=== PATIENT | male | born 1955 | race Native Hawaiian/Other Pacific Islander ===

== ENCOUNTER 2019-05-15 01:10 | Inpatient (IN) | payer MEDICARE ==
[2019-05-15] MEDS ORDERED: SODIUM CHLORIDE 0.9% 500 ML 500 ML IV ONE (02:01)
[2019-05-15] MEDS ORDERED: HYDROmorphone 1 MG/ML 1 ML SYRINGE IVP STA (02:01)
[2019-05-15] MEDS ORDERED: ONDANSETRON 4 MG/2 ML VIAL IVP STA (02:01)
[2019-05-15 02:39] LABS: Basophils % (A) 0 %; Eosinophils # (A) 0.3 k/uL (0-0.7); Eosinophils % (A) 2 %; HCT 42.6 % (39.0-53.0); HGB 14.4 gm/dL (13.0-17.5); Lymphocytes % (A) 8 %; MCH 30.3 pg (25.0-35.0); MCHC 33.9 g/dL (31.0-37.0); MCV 89.6 fL (80.0-100.0); Mean Platelet Volume 6.9; Monocytes # (A) 0.7 k/uL (0-1.0); Monocytes % (A) 5 %; Neutrophils # (A) 10.6 k/uL (1.3-7.7); Neutrophils % (A) 84 %; Platelet Count 270 k/uL (150-450); RBC 4.76 m/uL (4.30-5.90); RDW 13.7 % (11.5-15.5); WBC 12.6 k/uL (3.8-10.6)
[2019-05-15 02:49] LABS: ALT 24 U/L (21-72); AST 21 U/L (17-59); African American GFR (CKD) >90 (>60 ml/min/1.73 sqM); Albumin 3.4 g/dL (3.5-5.0); Alkaline Phosphatase 126 U/L (38-126); Anion Gap 8 mmol/L; Blood Urea Nitrogen 5 mg/dL (9-20); Calcium 8.8 mg/dL (8.4-10.2); Carbon Dioxide 28 mmol/L (22-30); Chloride 101 mmol/L (98-107); Glucose 123 mg/dL (74-99); Potassium 3.2 mmol/L (3.5-5.1); Sodium 137 mmol/L (137-145); Total Protein 6.1 g/dL (6.3-8.2)
[2019-05-15] MEDS ORDERED: POTASSIUM CHLORIDE ER 20 MEQ TAB.ER PO STA ×2 (02:50→11:22)
[2019-05-15] MEDS ORDERED: SULFAMETH-TMP DS STARTER PACK 2 TAB BTL PO STA (03:07)
[2019-05-15] MEDS ORDERED: PIPERACILLIN-TAZOBACTAM 3.375 GM in SODIUM CHLORIDE 0.9% 100 ML IVPB STA (04:00)
[2019-05-15] MEDS ORDERED: VANCOMYCIN IV PER PHARMACY 1 EACH MISC MISCELLANE PRN (04:00)
[2019-05-15] MEDS ORDERED: ONDANSETRON 4 MG/2 ML VIAL IVP PRN (04:05)
[2019-05-15] MEDS ORDERED: NALOXONE 0.4 MG/ML 1 ML VIAL IV PRN (04:05)
--- NOTE | 2019-05-15 04:09 | ED ---
General Adult HPI - General Source: patient Mode of arrival: ambulatory Limitations: no limitations <Love Nelson - Last Filed: 05/15/19 04:11> <Blaire Macedo - Last Filed: 05/29/19 14:52> - General Chief complaint: Extremity Injury, Lower Stated complaint: Foot Pain Time Seen by Provider: 05/15/19 01:25 - History of Present Illness Initial comments: 63-year-old male patient with past medical history significant for hypertension, alcohol abuse, recently diagnosed with type 2 diabetes, presents to the emergency department today for evaluation of infection to the left foot. Patient was recently seen and treated at the [facility] for wet gangrene of the left second toe with cellulitis to the foot. Patient underwent amputation of the left second toe on 05/13/2019. Patient states that today they were discussing amputation of the remainder of the toes on the left foot, states that he did not feel this was necessary so he left AGAINST MEDICAL ADVICE on 05/14/20 at 2030. Patient initially stubbed his toe on a chair approximately 3 weeks ago. States he developed an infection to the wound on the toe. He was seen at "[facility]" where they recommended amputation of the toe. He left that facility to seek treatment at the [facility], left AMA, which brings us to his visit here hetal. Patient is reporting significant pain to the left foot. States he was receiving IV antibiotics and IV fluids. States that he has a "blockage" in his leg causing the wounds. Patient denies any fever or chills. Denies any nausea or vomiting. Patient denies any recent rash, shortness breath, chest pain, abdominal pain, diarrhea, constipation, back pain, numbness, tingling, dizziness, weakness, hematuria, dysuria, urinary urgency, urinary frequency, headache, visual changes, or any other complaints. (Love Nelson) - Related Data Home Medications Medication Instructions Recorded Confirmed Lisinopril 20 mg PO PC-LUNCH 05/15/19 05/22/19 Previous Rx's Medication Instructions Recorded cefTRIAXone [Rocephin] 2,000 mg IVPB Q24HR #14 vial 05/25/19 Apixaban [Eliquis] 5 mg PO BID #60 tab 05/26/19 traMADol HCl [Ultram] 50 mg PO TID PRN #12 tab 05/28/19 Allergies Allergy/AdvReac Type Severity Reaction Status Date / Time codeine AdvReac Hallucinati Verified 05/22/19 11:11 ons Review of Systems ROS Other: All systems not noted in ROS Statement are negative. <Love Nelson M - Last Filed: 05/15/19 04:11> ROS Other: All systems not noted in ROS Statement are negative. <Blaire Macedo P - Last Filed: 05/29/19 14:52> ROS Statement: Those systems with pertinent positive or pertinent negative responses have been documented in the HPI. Past Medical History Past Medical History: Hypertension History of Any Multi-Drug Resistant Organisms: None Reported Past Surgical History: Orthopedic Surgery Additional Past Surgical History / Comment(s): second toe on left foot amputated 05/13/2019 Past Psychological History: No Psychological Hx Reported Smoking Status: Former smoker Past Alcohol Use History: Occasional Past Drug Use History: Marijuana <Love Nelson - Last Filed: 05/15/19 04:11> General Exam Limitations: no limitations General appearance: alert, in no apparent distress, other (Physical well- developed, well-nourished adult male patient in no acute distress. Vital signs upon presentation are temperature 98.5F, pulse 92, respirations 18, blood pressure 160/78, pulse ox 97% on room air.) Eye exam: Present: normal appearance, PERRL, EOMI. Absent: scleral icterus, conjunctival injection, periorbital swelling ENT exam: Present: normal exam, normal oropharynx, mucous membranes moist Cardiovascular Exam: Present: regular rate, normal rhythm, normal heart sounds. Absent: systolic murmur, diastolic murmur, rubs, gallop, clicks GI/Abdominal exam: Present: soft, normal bowel sounds. Absent: distended, tenderness, guarding, rebound, rigid Extremities exam: Present: full ROM, tenderness (Left dorsal foot tenderness), normal capillary refill, other (Patient has amputation of the left second toe. There is necrotic wound to the lateral aspect of the left great toe. There is wound between the left fourth and fifth toe with purulent drainage. There is erythema and swelling noted over the dorsal aspect of the left foot. Tenderness over the dorsal aspect of the left foot. Skin is warm and dry. Pulses to the left foot are absent.). Absent: normal inspection, pedal edema, joint swelling, calf tenderness Neurological exam: Present: alert, oriented X3, CN II-XII intact Psychiatric exam: Present: normal affect, normal mood Skin exam: Present: warm, dry, intact, normal color. Absent: rash <Love Nelson - Last Filed: 05/15/19 04:11> Course Vital Signs 05/15/19 05/15/19 05/15/19 01:14 04:25 06:37 Temperature 98.5 F 98.7 F Pulse Rate 92 73 78 Respiratory 18 18 18 Rate Blood Pressure 160/78 154/84 167/89 O2 Sat by Pulse 97 97 98 Oximetry Medical Decision Making - Lab Data Result diagrams: 05/15/19 02:22 05/15/19 02:22 <Love Nelson - Last Filed: 05/15/19 04:11> - Lab Data Result diagrams: 05/25/19 06:44 05/24/19 05:50 <Blaire Macedo - Last Filed: 05/29/19 14:52> - Medical Decision Making 63-year-old male patient with history significant for hypertension, alcohol abuse, approximately one fifth per week, recently diagnosed with type 2 diabetes, presents to the emergency department today for evaluation of infection and wounds to the left foot. Patient was being treated at the [facility] for gangrene of the left second toe and is status post left second toe amputation on 05/13/2019. Patient left their facility AGAINST MEDICAL ADVICE 05/14/2019 at 2030 due to discussion regarding amputation of the remainder of the toes on the left foot. Patient presented here for further evaluation and treatment at a facility closer to his home. Review of records from the [facility] indicates that patient was receiving Zosyn and vancomycin IV for diagnosis of wet gangrene and cellulitis to the left foot. Patient was being seen by the vascular team there who were planning fem- pop bypass. Xray of the left foot showed prominent soft tissue swelling of the dorsal forefoot. No evidence of underlying acute osseous abnormality. Preliminary wound culture did show rare gram positive cocci. Physical examination here in the emergency department did reveal evidence for erythema and swelling to the left dorsal foot, left second toe amputation, wounds to the left great toe and between the fourth and fifth toe on the left foot. Patient is afebrile with stable vital signs. Labs reviewed and did reveal white blood cell count of 12.6. Potassium 3.2, this was replaced. Mildly elevated blood sugar 123. Patient's pain was managed. I did discuss the case with the on-call vascular surgeon Dr. Tapia who is willing to see and manage patient at this facility. Patient will be admitted to Dr. De La Rosa who covers for the [facility]. I have placed a consult for infectious disease. His vanco and zosyn has been continued. I did culture the wound to the left foot. Pain management will be provided. Patient and family are agreeable with this plan. (Love Nelson) I personally saw and evaluated the patient and agree with plan for admission and vascular surgery consultation. (Blaire Macedo) - Lab Data Lab Results 05/15/19 05/15/19 05/15/19 Range/Units 02:22 02:22 02:22 WBC 12.6 H (3.8-10.6) k/uL RBC 4.76 (4.30-5.90) m/uL Hgb 14.4 (13.0-17.5) gm/dL Hct 42.6 (39.0-53.0) % MCV 89.6 (80.0-100.0) fL MCH 30.3 (25.0-35.0) pg MCHC 33.9 (31.0-37.0) g/dL RDW 13.7 (11.5-15.5) % Plt Count 270 (150-450) k/uL Neutrophils % 84 % Lymphocytes % 8 % Monocytes % 5 % Eosinophils % 2 % Basophils % 0 % Neutrophils # 10.6 H (1.3-7.7) k/uL Lymphocytes # 1.0 (1.0-4.8) k/uL Monocytes # 0.7 (0-1.0) k/uL Eosinophils # 0.3 (0-0.7) k/uL Basophils # 0.0 (0-0.2) k/uL Sodium 137 (137-145) mmol/L Potassium 3.2 L (3.5-5.1) mmol/L Chloride 101 (98-107) mmol/L Carbon Dioxide 28 (22-30) mmol/L Anion Gap 8 mmol/L BUN 5 L (9-20) mg/dL Creatinine 0.53 L (0.66-1.25) mg/dL Est GFR (CKD-EPI)AfAm >90 (>60 ml/min/1.73 sqM) Est GFR (CKD-EPI)NonAf >90 (>60 ml/min/1.73 sqM) Glucose 123 H (74-99) mg/dL Estimated Ave Glu mg/dL Hemoglobin A1c (4.0-6.0) % Plasma Lactic Acid Duane 1.2 (0.7-2.0) mmol/L Calcium 8.8 (8.4-10.2) mg/dL Total Bilirubin 1.0 (0.2-1.3) mg/dL AST 21 (17-59) U/L ALT 24 (21-72) U/L Alkaline Phosphatase 126 (38-126) U/L Total Protein 6.1 L (6.3-8.2) g/dL Albumin 3.4 L (3.5-5.0) g/dL 05/15/19 Range/Units 02:22 WBC (3.8-10.6) k/uL RBC (4.30-5.90) m/uL Hgb (13.0-17.5) gm/dL Hct (39.0-53.0) % MCV (80.0-100.0) fL MCH (25.0-35.0) pg MCHC (31.0-37.0) g/dL RDW (11.5-15.5) % Plt Count (150-450) k/uL Neutrophils % % Lymphocytes % % Monocytes % % Eosinophils % % Basophils % % Neutrophils # (1.3-7.7) k/uL Lymphocytes # (1.0-4.8) k/uL Monocytes # (0-1.0) k/uL Eosinophils # (0-0.7) k/uL Basophils # (0-0.2) k/uL Sodium (137-145) mmol/L Potassium (3.5-5.1) mmol/L Chloride (98-107) mmol/L Carbon Dioxide (22-30) mmol/L Anion Gap mmol/L BUN (9-20) mg/dL Creatinine (0.66-1.25) mg/dL Est GFR (CKD-EPI)AfAm (>60 ml/min/1.73 sqM) Est GFR (CKD-EPI)NonAf (>60 ml/min/1.73 sqM) Glucose (74-99) mg/dL Estimated Ave Glu mg/dL 131 Hemoglobin A1c 6.2 H (4.0-6.0) % Plasma Lactic Acid Duane (0.7-2.0) mmol/L Calcium (8.4-10.2) mg/dL Total Bilirubin (0.2-1.3) mg/dL AST (17-59) U/L ALT (21-72) U/L Alkaline Phosphatase (38-126) U/L Total Protein (6.3-8.2) g/dL Albumin (3.5-5.0) g/dL Disposition Decision to Admit Reason: Admit from EC Decision Date: 05/15/19 Decision Time: 04:09 <Love Nelson - Last Filed: 05/15/19 04:11> <Blaire Macedo - Last Filed: 05/29/19 14:52> Clinical Impression: Gangrene of left foot, Cellulitis of left foot, Arterial occlusion Disposition: ADMITTED IP TO THIS [facility] Condition: Serious
[2019-05-15] MEDS ORDERED: VANCOMYCIN 1,250 MG in SODIUM CHLORIDE 0.9% 250 ML IVPB ONE (05:00)
[2019-05-15] MEDS: HYDROmorphone 1 MG/ML 1 ML SYRINGE IVP PRN ×5 (06:33→22:23)
[2019-05-15] MEDS: LISINOPRIL 20 MG TAB PO SCH (08:35)
[2019-05-15] MEDS: PIPERACILLIN-TAZOBACTAM 3.375 GM in SODIUM CHLORIDE 0.9% 100 ML IVPB SCH ×2 (10:54→20:59)
[2019-05-15 12:36] LABS: Glucose,Whole Blood 104 mg/dL (75-99)
--- NOTE | 2019-05-15 12:58 | P.CONS ---
History of Present Illness - Reason for Consult Consult date: 05/15/19 Gangrene left foot cellulitis - History of Present Illness This is a 63-year-old male gives history that he had an injury to his left foot about a month ago when he tripped in his living room and injured his left foot. Patient states that he developed swelling continued to worsen and he was unable to fit issue on his foot. He ended up at [facility] but was unhappy with care and then went to [facility] in [place]. He had amputation of the second toe done on May 13 and he states vascular surgeon wasn't planning to do bypass surgery and possible transmetatarsal amputation but he did not want to undergo this. He had a second opinion with a retention specialist and it was determined that he would not have the amputation. He states he was concerned about his care there and left last evening, possibly AGAINST MEDICAL ADVICE and came to [facility] emergency center for evaluation. He was found to be febrile, WBC 12.6, creatinine 0.53, blood sugar 123, albumin 3.4. Patient was started on Zosyn and vancomycin and admitted to the [facility] floor. There is also consult in place for Dr. Martinez. The patient denies any history of diabetes although it is documented in his chart. He is currently an active smoker at 5-6 cigarettes per day and also active marijuana use. He denies alcohol abuse. Review of Systems Constitutional: Denies chills, Denies fatigue, Denies fever, Denies lethargy, Denies malaise, Denies weight loss Ears, nose, mouth and throat: Denies dysphagia, Denies nasal congestion, Denies nasal discharge, Denies vertigo Cardiovascular: Denies decreased exercise tolerance, Denies dyspnea on exertion, Denies edema, Denies leg edema, Denies lightheadedness, Denies syncope Respiratory: Denies cough, Denies cough with sputum, Denies dyspnea, Denies excessive sputum, Denies hemoptysis, Denies home oxygen, Denies wheezing Gastrointestinal: Denies constipation, Denies diarrhea, Denies loss of appetite, Denies nausea, Denies vomiting Genitourinary: Denies dysuria, Denies urinary frequency, Denies urinary retentio n Musculoskeletal: Denies frequent falls, Denies gait dysfunction, Denies muscle weakness, Denies myalgias Integumentary: Reports color changes, Reports darkening of skin, Reports wounds, Denies pruritus, Denies rash Neurological: Denies aphasia, Denies change in mentation, Denies change in speech, Denies confusion, Denies gait dysfunction, Denies syncope, Denies vertigo Psychiatric: Denies anxiety, Denies depression Past Medical History Past Medical History: Diabetes Mellitus, Hypertension Additional Past Medical History / Comment(s): recently diagnosed with type 2 diabetes last month. Nerve damage from left rotater cuff. Mumps/measles at a child. Psoriasis. History of Any Multi-Drug Resistant Organisms: None Reported Past Surgical History: Orthopedic Surgery Additional Past Surgical History / Comment(s): second toe on left foot amputated 05/13/2019 Past Psychological History: No Psychological Hx Reported Smoking Status: Former smoker Past Alcohol Use History: Occasional Additional Past Alcohol Use History / Comment(s): The patient is a smoker 5-6 cigarettes per day for 40 years. He states he smokes marijuana daily. He states he drinks very little alcohol and denies alcohol abuse. Patient lives at home with his significant other. There is a dog in the home. He is on disability due to a rotator cuff problem. 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 Past Drug Use History: Marijuana Medications and Allergies Home Medications Medication Instructions Recorded Confirmed Type Lisinopril 20 mg PO PC-LUNCH 05/15/19 05/15/19 History Allergies Allergy/AdvReac Type Severity Reaction Status Date / Time codeine AdvReac Hallucinati Verified 05/15/19 06:31 ons Physical Exam Vitals: Vital Signs Temp Pulse Pulse Resp BP BP Pulse Ox 05/15/19 07:25 98.1 F 65 16 154/86 97 05/15/19 06:37 98.7 F 78 18 167/89 98 05/15/19 04:25 73 18 154/84 97 05/15/19 01:14 98.5 F 92 18 160/78 97 Intake and Output 05/14/19 05/15/19 05/15/19 22:59 06:59 14:59 Intake Total 400 Output Total 400 Balance 0 Intake: Intake, IV Titration 100 Amount Piperacillin-Tazobactam 3 100 .375 gm In Sodium Chloride 0.9% 100 ml @ 25 mls/hr IVPB Q8H [facility] Rx#: [id number] Oral 300 Output: Urine 400 Other: Voiding Method Urinal Weight 72.121 kg Gen: This is a 63-year-old male. He is resting in bed appears to be comfortable and in no acute distress. HEENT: Head is atraumatic, normocephalic. Pupils equal, round. Sclerae is anicteric. Oral mucous membranes are moist. NECK: Supple. No JVD. No lymphadenopathy. No thyromegaly. LUNGS: Clear to auscultation. No wheezes or rhonchi. No intercostal retractions. HEART: Regular rate and rhythm. No murmur. ABDOMEN: Soft. Bowel sounds are present. No masses. No tenderness. EXTREMITIES: No pedal edema. No calf tenderness. Noted amputation to the second toe on the left foot, trace edema, mild erythema to the distal metatarsals. Dorsalis pedis is +1 bilaterally. NEUROLOGICAL: Patient is awake, alert and oriented x3. Cranial nerves 2 through 12 are grossly intact. Results Results: Laboratory Results WBC 12.6 k/uL (3.8-10.6) H 05/15/19 02:22 RBC 4.76 m/uL (4.30-5.90) 05/15/19 02:22 Hgb 14.4 gm/dL (13.0-17.5) 05/15/19 02:22 Hct 42.6 % (39.0-53.0) 05/15/19 02:22 MCV 89.6 fL (80.0-100.0) 05/15/19 02:22 MCH 30.3 pg (25.0-35.0) 05/15/19 02:22 MCHC 33.9 g/dL (31.0-37.0) 05/15/19 02:22 RDW 13.7 % (11.5-15.5) 05/15/19 02:22 Plt Count 270 k/uL (150-450) 05/15/19 02:22 Neutrophils % 84 % 05/15/19 02:22 Lymphocytes % 8 % 05/15/19 02:22 Monocytes % 5 % 05/15/19 02:22 Eosinophils % 2 % 05/15/19 02:22 Basophils % 0 % 05/15/19 02:22 Neutrophils # 10.6 k/uL (1.3-7.7) H 05/15/19 02:22 Lymphocytes # 1.0 k/uL (1.0-4.8) 05/15/19 02:22 Monocytes # 0.7 k/uL (0-1.0) 05/15/19 02:22 Eosinophils # 0.3 k/uL (0-0.7) 05/15/19 02:22 Basophils # 0.0 k/uL (0-0.2) 05/15/19 02:22 Sodium 137 mmol/L (137-145) 05/15/19 02:22 Potassium 3.2 mmol/L (3.5-5.1) L 05/15/19 02:22 Chloride 101 mmol/L (98-107) 05/15/19 02:22 Carbon Dioxide 28 mmol/L (22-30) 05/15/19 02:22 Anion Gap 8 mmol/L 05/15/19 02:22 BUN 5 mg/dL (9-20) L 05/15/19 02:22 Creatinine 0.53 mg/dL (0.66-1.25) L 05/15/19 02:22 Est GFR (CKD-EPI)AfAm >90 (>60 ml/min/1.73 sqM) 05/15/19 02:22 Est GFR (CKD-EPI)NonAf >90 (>60 ml/min/1.73 sqM) 05/15/19 02:22 Glucose 123 mg/dL (74-99) H 05/15/19 02:22 POC Glucose (mg/dL) 104 mg/dL (75-99) H 05/15/19 12:20 POC Glu [place] Worker Cari Rollins 05/15/19 12:20 Plasma Lactic Acid Duane 1.2 mmol/L (0.7-2.0) 05/15/19 02:22 Calcium 8.8 mg/dL (8.4-10.2) 05/15/19 02:22 Total Bilirubin 1.0 mg/dL (0.2-1.3) 05/15/19 02:22 AST 21 U/L (17-59) 05/15/19 02:22 ALT 24 U/L (21-72) 05/15/19 02:22 Alkaline Phosphatase 126 U/L (38-126) 05/15/19 02:22 Total Protein 6.1 g/dL (6.3-8.2) L 05/15/19 02:22 Albumin 3.4 g/dL (3.5-5.0) L 05/15/19 02:22 CBC & Chem 7: 05/15/19 02:22 05/15/19 02:22 Labs: Abnormal Lab Results - Last 24 Hours (Table) 05/15/19 05/15/19 05/15/19 Range/Units 02:22 02:22 12:20 WBC 12.6 H (3.8-10.6) k/uL Neutrophils # 10.6 H (1.3-7.7) k/uL Potassium 3.2 L (3.5-5.1) mmol/L BUN 5 L (9-20) mg/dL Creatinine 0.53 L (0.66-1.25) mg/dL Glucose 123 H (74-99) mg/dL POC Glucose (mg/dL) 104 H (75-99) mg/dL Total Protein 6.1 L (6.3-8.2) g/dL Albumin 3.4 L (3.5-5.0) g/dL Microbiology - Last 24 Hours (Table) 05/15/19 04:31 Wound Culture - Preliminary Toe - Left Second Assessment and Plan Plan: This is a 63-year-old man who recently underwent amputation of the left second toe for gangrene. He is currently on Zosyn and vancomycin which will be continued for now. [facility] from [facility] will be obtained. Dr. Martinez is also on consult. Hemoglobin A1c will be ordered. Continue supportive care. Further recommendations as patient progresses. The above dictated assessment and findings were discussed with Dr. Matos. The impression and plan of care have been directed as dictated. Yumiko Maynard nurse practitioner acting as scribe for Dr. Matos.
[2019-05-15] MEDS: VANCOMYCIN 1,250 MG in SODIUM CHLORIDE 0.9% 250 ML IVPB SCH ×2 (13:10→22:25)
--- NOTE | 2019-05-15 13:42 | P.HPIM ---
History of Present Illness 63-year-old male with history of breast disease hypertension was smoking until 2 weeks ago had a recent amputation of the left second toe on the May at [facility] in [place] left AMA from the hospital as he was getting confusing information from all the doctors that. Patient comes in here with pain in the right leg found to have cellulitis infection. Patient is on Zosyn and vancomycin infectious disease was consulted. Patient was diagnosed with the diabetes with hemoglobin A1c of 6.1 at [facility] without need a hemoglobin A1c here that which will be deciding her patient denied any fever chills nausea vomiting. Patient and dysuria Review of Systems REVIEW OF SYSTEMS: CONSTITUTIONAL: No fever, no malaise, no fatigue. HEENT: No recent visual problems or hearing problems. Denied any sore throat. CARDIOVASCULAR: No chest pain, orthopnea, PND, no palpitations, no syncope. PULMONARY: No shortness of breath, no cough, no hemoptysis. GASTROINTESTINAL: No diarrhea, no nausea, no vomiting, no abdominal pain. NEUROLOGICAL: No headaches, no weakness, no numbness. HEMATOLOGICAL: Denies any bleeding or petechiae. GENITOURINARY: Denies any burning micturition, frequency, or urgency. MUSCULOSKELETAL/RHEUMATOLOGICAL: As mentioned in HPI ENDOCRINE: Denies any polyuria or polydipsia. The rest of the 14-point review of systems is negative. Past Medical History Past Medical History: Diabetes Mellitus, Hypertension Additional Past Medical History / Comment(s): recently diagnosed with type 2 diabetes last month. Nerve damage from left rotater cuff. Mumps/measles at a child. Psoriasis. History of Any Multi-Drug Resistant Organisms: None Reported Past Surgical History: Orthopedic Surgery Additional Past Surgical History / Comment(s): second toe on left foot amputated 05/13/2019 Past Psychological History: No Psychological Hx Reported Smoking Status: Former smoker Past Alcohol Use History: Occasional Additional Past Alcohol Use History / Comment(s): The patient is a smoker 5-6 cigarettes per day for 40 years. He states he smokes marijuana daily. He states he drinks very little alcohol and denies alcohol abuse. Patient lives at home with his significant other. There is a dog in the home. He is on disability due to a rotator cuff problem. 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 Past Drug Use History: Marijuana Medications and Allergies Home Medications Medication Instructions Recorded Confirmed Type Lisinopril 20 mg PO PC-LUNCH 05/15/19 05/15/19 History Allergies Allergy/AdvReac Type Severity Reaction Status Date / Time codeine AdvReac Hallucinati Verified 05/15/19 06:31 ons Physical Exam Vitals: Vital Signs Temp Pulse Pulse Resp BP BP Pulse Ox 05/15/19 07:25 98.1 F 65 16 154/86 97 05/15/19 06:37 98.7 F 78 18 167/89 98 05/15/19 04:25 73 18 154/84 97 05/15/19 01:14 98.5 F 92 18 160/78 97 Intake and Output 05/14/19 05/15/19 05/15/19 22:59 06:59 14:59 Intake Total 700 Output Total 700 Balance 0 Intake: Intake, IV Titration 100 Amount Piperacillin-Tazobactam 3 100 .375 gm In Sodium Chloride 0.9% 100 ml @ 25 mls/hr IVPB Q8H [facility] Rx#: [id number] Oral 600 Output: Urine 700 Other: Voiding Method Urinal Weight 72.121 kg PHYSICAL EXAMINATION: GENERAL: The patient is alert and oriented x3, not in any acute distress. Well developed, well nourished. HEENT: Pupils are round and equally reacting to light. EOMI. No scleral icterus. No conjunctival pallor. Normocephalic, atraumatic. No pharyngeal erythema. No th yromegaly. CARDIOVASCULAR: S1 and S2 present. No murmurs, rubs, or gallops. PULMONARY: Chest is clear to auscultation, no wheezing or crackles. ABDOMEN: Soft, nontender, nondistended, normoactive bowel sounds. No palpable organomegaly. MUSCULOSKELETAL: No joint swelling or deformity. EXTREMITIES: No cyanosis, clubbing, or pedal edema. NEUROLOGICAL: Gross neurological examination did not reveal any focal deficits. SKIN: Patient had amputated second right toe, surgical site area appears to be red erythematous tender to touch with the purulent drainage yesterday presently not having any drainage. Decreased pulses in the same extremity pulses in the legs. Okay Results CBC & Chem 7: 05/15/19 02:22 05/15/19 02:22 Labs: Abnormal Lab Results - Last 24 Hours (Table) 05/15/19 05/15/19 05/15/19 Range/Units 02:22 02:22 12:20 WBC 12.6 H (3.8-10.6) k/uL Neutrophils # 10.6 H (1.3-7.7) k/uL Potassium 3.2 L (3.5-5.1) mmol/L BUN 5 L (9-20) mg/dL Creatinine 0.53 L (0.66-1.25) mg/dL Glucose 123 H (74-99) mg/dL POC Glucose (mg/dL) 104 H (75-99) mg/dL Total Protein 6.1 L (6.3-8.2) g/dL Albumin 3.4 L (3.5-5.0) g/dL Microbiology - Last 24 Hours (Table) 05/15/19 04:31 Wound Culture - Preliminary Toe - Left Second Thrombosis Risk Factor Assmnt - Choose All That Apply Any of the Below Risk Factors Present?: No Each Risk Factor Represents 2 Points: Age 61-74 years Thrombosis Risk Factor Assessment Total Risk Factor Score: 2 Thrombosis Risk Factor Assessment Level: Low Risk Assessment and Plan Plan: -Cellulitis and infection of the left foot status post amputation of the left second toe. Awaiting wound cultures and blood cultures. -Peripheral vascular disease --3 diabetes mellitus with hemoglobin A1c 6.1 -Hypertension: Resume on lisinopril -Nicotine abuse, quit smoking 2 weeks ago DVT prophylaxis with heparin subcutaneous and GI prophylaxis with Pepcid
[2019-05-15] MEDS: HEPARIN SODIUM,PORCINE 5,000 UNIT/ML 1 ML VIAL SQ SCH (15:36)
[2019-05-15] MEDS ORDERED: VANCOMYCIN 1,250 MG in SODIUM CHLORIDE 0.9% 250 ML IVPB SCH (17:00)
--- NOTE | 2019-05-15 18:07 | P.GSCN ---
History of Present Illness Consult date: 05/15/19 History of present illness: The patient is a 63-year-old male with a history of hypertension, newly diagnosed diabetes, tobacco abuse and left lower extremity gangrene. A few weeks back he injured his toe by hitting it on something. He notices her to change colors. He initially went to an outside hospital and was told he would need a partial amputation of his toe. At that point he left AMA from that hospital. [facility] [place] and told him he would need further intervention. He was confused between the doctor's and did not feel as though he wanted to stay therefore he left AMA from that location and presented to this hospital. He denies any fevers, chills, nausea, vomiting or chest pains. Past Medical History Past Medical History: Diabetes Mellitus, Hypertension Additional Past Medical History / Comment(s): recently diagnosed with type 2 diabetes last month. Nerve damage from left rotater cuff. Mumps/measles at a [facility] ld. Psoriasis. History of Any Multi-Drug Resistant Organisms: None Reported Past Surgical History: Orthopedic Surgery Additional Past Surgical History / Comment(s): second toe on left foot amputated 05/13/2019 Past Psychological History: No Psychological Hx Reported Smoking Status: Former smoker Past Alcohol Use History: Occasional Additional Past Alcohol Use History / Comment(s): The patient is a smoker 5-6 cigarettes per day for 40 years. He states he smokes marijuana daily. He states he drinks very little alcohol and denies alcohol abuse. Patient lives at home with his significant other. There is a dog in the home. He is on disability due to a rotator cuff problem. 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 Past Drug Use History: Marijuana Medications and Allergies Home Medications Medication Instructions Recorded Confirmed Type Lisinopril 20 mg PO PC-LUNCH 05/15/19 05/15/19 History Allergies Allergy/AdvReac Type Severity Reaction Status Date / Time codeine AdvReac Hallucinati Verified 05/15/19 06:31 ons Surgical - Exam Vital Signs Temp Pulse Resp BP Pulse Ox 98.5 F 92 18 160/78 97 05/15/19 01:14 05/15/19 01:14 05/15/19 01:14 05/15/19 01:14 05/15/19 01:14 Gen. is a pleasant cooperative male in no acute distress HEENT is normocephalic and atraumatic Heart is regular in rate and rhythm Lungs are clear consultation bilaterally, no respiratory distress Abdomen is soft, rotund, nontender to palpation In the right groin there is an old access site with mild ecchymosis surrounding, left groin is clean, dry Extremities show normal motion, no clubbing. On the left lower extremity the second toe is surgically absent. There is some subcutaneous edema and the dorsal portion of the left foot. There is some area of necrotic tissue at the edges of the wound bed. The tissues between the fourth and fifth toe are macerated Vascular exam reveals palpable radial pulses bilaterally. Weakly palpable right femoral pulse, strong left femoral pulse. Nonpalpable DP/PT. Results - Labs 05/15/19 02:22 05/15/19 02:22 Abnormal Lab Results - Last 24 Hours (Table) 05/15/19 05/15/19 05/15/19 Range/Units 02:22 02:22 12:20 WBC 12.6 H (3.8-10.6) k/uL Neutrophils # 10.6 H (1.3-7.7) k/uL Potassium 3.2 L (3.5-5.1) mmol/L BUN 5 L (9-20) mg/dL Creatinine 0.53 L (0.66-1.25) mg/dL Glucose 123 H (74-99) mg/dL POC Glucose (mg/dL) 104 H (75-99) mg/dL Total Protein 6.1 L (6.3-8.2) g/dL Albumin 3.4 L (3.5-5.0) g/dL Microbiology - Last 24 Hours (Table) 05/15/19 04:31 Wound Culture - Preliminary Toe - Left Second Diabetes panel 05/15/19 Range/Units 02:22 Sodium 137 (137-145) mmol/L Potassium 3.2 L (3.5-5.1) mmol/L Chloride 101 (98-107) mmol/L Carbon Dioxide 28 (22-30) mmol/L BUN 5 L (9-20) mg/dL Creatinine 0.53 L (0.66-1.25) mg/dL Glucose 123 H (74-99) mg/dL Calcium 8.8 (8.4-10.2) mg/dL AST 21 (17-59) U/L ALT 24 (21-72) U/L Alkaline Phosphatase 126 (38-126) U/L Total Protein 6.1 L (6.3-8.2) g/dL Albumin 3.4 L (3.5-5.0) g/dL Calcium panel 05/15/19 Range/Units 02:22 Calcium 8.8 (8.4-10.2) mg/dL Albumin 3.4 L (3.5-5.0) g/dL Pituitary panel 05/15/19 Range/Units 02:22 Sodium 137 (137-145) mmol/L Potassium 3.2 L (3.5-5.1) mmol/L Chloride 101 (98-107) mmol/L Carbon Dioxide 28 (22-30) mmol/L BUN 5 L (9-20) mg/dL Creatinine 0.53 L (0.66-1.25) mg/dL Glucose 123 H (74-99) mg/dL Calcium 8.8 (8.4-10.2) mg/dL Adrenal panel 05/15/19 Range/Units 02:22 Sodium 137 (137-145) mmol/L Potassium 3.2 L (3.5-5.1) mmol/L Chloride 101 (98-107) mmol/L Carbon Dioxide 28 (22-30) mmol/L BUN 5 L (9-20) mg/dL Creatinine 0.53 L (0.66-1.25) mg/dL Glucose 123 H (74-99) mg/dL Calcium 8.8 (8.4-10.2) mg/dL Total Bilirubin 1.0 (0.2-1.3) mg/dL AST 21 (17-59) U/L ALT 24 (21-72) U/L Alkaline Phosphatase 126 (38-126) U/L Total Protein 6.1 L (6.3-8.2) g/dL Albumin 3.4 L (3.5-5.0) g/dL Assessment and Plan Plan: #1 gangrene of the toe, left lower extremity status post second toe amputation #2 cellulitis left lower extremity #3 peripheral arterial disease #4 tobacco abuse with recent cessation, 2 weeks #5 newly diagnosed diabetes with hemoglobin A1c of 6.1 #6 regular alcohol use #7 daily marijuana use At this point the records are reviewed, [facility] and no record of any imaging previously performed. At this time the patient is on vancomycin and Zosyn per infectious disease and agree with continuing this. The patient does have likely significant peripheral arterial disease. I will attempt to obtain records from the [facility] regarding a angiogram that was performed as well as ultrasounds. If we are unable to obtain these, would need to perform at this hospital obtaining ABIs and segmental pressures. Likely the patient will need an angiogram with possible intervention versus possible bypass going forward. At this point the remainder of the tissues on the toe/foot appeared to possibly be amenable to salvage if blood flow is able to be reinstituted. Discussion was had with the patient that if there is no further availability revascularization, he would likely require a transmetatarsal amputation.
[2019-05-15 19:12] LABS: Hemoglobin A1C 6.2 % (4.0-6.0)
[2019-05-15] MEDS: FAMOTIDINE 20 MG TAB PO SCH (22:23)
--- NOTE | 2019-05-15 22:54 | P.CON ---
Consult Note - . Consult date: 05/15/19 Assessment/Plan:: This is a 63-year-old male gives history that he had an injury to his left foot about a month ago when he tripped in his living room and injured his left foot. Patient states that he developed swelling continued to worsen and he was unable to fit issue on his foot. He ended up at [facility] but was unhappy with care and then went to OR in [place]. He had amputation of the second toe done on May 13 and he states vascular surgeon wasn't planning to do bypass surgery and possible transmetatarsal amputation but he did not want to undergo this. He had a second opinion with a rail express clerk and it was determined that he would not have the amputation. He states he was concerned about his care there and left last evening, possibly AGAINST MEDICAL ADVICE and came to [facility] emergency center for evaluation. He was found to be febrile, WBC 12.6, creatinine 0.53, blood sugar 123, albumin 3.4. Patient was started on Zosyn and vancomycin and admitted to the [facility] floor. There is also consult in place for Dr. Martinez. The patient denies any history of diabetes although it is documented in his chart. He is currently an active smoker at 5-6 cigarettes per day and also active marijuana use. He denies alcohol abuse. Please see the consult note is dictated by nurse practitioner Mrs. Yumiko Maynard. This 63-year-old man has a very significant past medical history as related above. He did leave the [facility] AM because it was disagreement between the vascular surgeon and the rail express clerk. He is hoping for a vascular procedure for more extensive debridement occurred. There is no reason he had the debridement and amputation of the second toe because of his grossly gangrenous. The patient is to be evaluated by vascular surgery and hopefully can have endovascular procedures in the salvage of the foot if possible. Antimicrobial therapy given his history is with Zosyn and vancomycin pending any further culture data. He understands importance of smoking cessation to allow wounds to heal. He will be monitoring his blood sugar to ensure that this is not elevated. Proteins need to be assessed and supplemented as needed. Multivitamin is helpful. I agree with evaluation, assessment and plan as dictated by nurse practitioner Mrs. Yuimko Maynard.
[2019-05-16] MEDS: HEPARIN SODIUM,PORCINE 5,000 UNIT/ML 1 ML VIAL SQ SCH ×4 (00:20→23:31)
[2019-05-16] MEDS: HYDROmorphone 1 MG/ML 1 ML SYRINGE IVP PRN ×6 (02:19→20:53)
[2019-05-16] MEDS: PIPERACILLIN-TAZOBACTAM 3.375 GM in SODIUM CHLORIDE 0.9% 100 ML IVPB SCH ×3 (04:17→20:54)
[2019-05-16] MEDS: VANCOMYCIN 1,250 MG in SODIUM CHLORIDE 0.9% 250 ML IVPB SCH ×3 (06:03→20:55)
[2019-05-16] MEDS: FAMOTIDINE 20 MG TAB PO SCH ×2 (08:01→20:55)
[2019-05-16] MEDS: LISINOPRIL 20 MG TAB PO SCH (08:01)
[2019-05-16 08:51] LABS: HGB 13.3 gm/dL (13.0-17.5); MCH 30.3 pg (25.0-35.0); MCHC 33.3 g/dL (31.0-37.0); Mean Platelet Volume 7.7; Platelet Count 223 k/uL (150-450); RDW 14.4 % (11.5-15.5); WBC 9.7 k/uL (3.8-10.6)
[2019-05-16 09:14] LABS: African American GFR (CKD) >90 (>60 ml/min/1.73 sqM); Anion Gap 7 mmol/L; Blood Urea Nitrogen 5 mg/dL (9-20); Calcium 8.4 mg/dL (8.4-10.2); Carbon Dioxide 30 mmol/L (22-30); Chloride 100 mmol/L (98-107); Glucose 96 mg/dL (74-99); Potassium 4.1 mmol/L (3.5-5.1); Sodium 137 mmol/L (137-145)
--- NOTE | 2019-05-16 12:20 | P.PN ---
Subjective Progress Note Date: 05/16/19 Patient seen and examined. Essentially unchanged overnight. Still with pain in his left lower extremity. No [facility] obtained [facility] the [facility] regarding the [facility] or any imaging No acute distress Heart regular No respiratory distress Left lower extremity cellulitis of the dorsal foot. Amputation site intact with minimal area of necrosis of the edges. Macerated between fourth and fifth digit Objective - Vital Signs Vital signs: Vital Signs Temp 97.9 F 05/16/19 05:23 Pulse 83 05/16/19 05:23 Resp 18 05/16/19 05:23 BP 157/82 05/16/19 05:23 Pulse Ox 97 05/16/19 05:23 Intake & Output 05/15/19 05/16/19 05/16/19 18:59 06:59 18:59 Intake Total 700 Output Total 1000 550 Balance -300 -550 Intake: Intake, IV Titration 100 Amount Piperacillin-Tazobactam 3 100 .375 gm In Sodium Chloride 0.9% 100 ml @ 25 mls/hr IVPB Q8H [facility] Rx#: [id number] Oral 600 Output: Urine 1000 550 Other: Voiding Method Urinal Urinal Urinal # Voids 1 - Labs CBC & Chem 7: 05/16/19 07:47 05/16/19 07:47 Labs: Abnormal Lab Results - Last 24 Hours (Table) 05/15/19 05/15/19 05/16/19 Range/Units 02:22 12:20 07:47 BUN 5 L (9-20) mg/dL Creatinine 0.64 L (0.66-1.25) mg/dL POC Glucose (mg/dL) 104 H (75-99) mg/dL Hemoglobin A1c 6.2 H (4.0-6.0) % Microbiology - Last 24 Hours (Table) 05/15/19 02:22 Blood Culture - Preliminary Blood No Growth after 24 hours 05/15/19 04:31 Gram Stain - Preliminary Toe - Left Second Wound Culture - Preliminary Assessment and Plan Plan: #1 gangrene of the toe, left lower extremity status post second toe amputation #2 cellulitis left lower extremity #3 peripheral arterial disease #4 tobacco abuse with recent cessation, 2 weeks #5 newly diagnosed diabetes with hemoglobin A1c of 6.1 #6 regular alcohol use #7 daily marijuana use check VENECIA/PVR, tentatively plan for angio with possible intervention on 05/19. At this point the remainder of the tissues on the toe/foot appeared to possibly be amenable to salvage if blood flow is able to be reinstituted. Discussion was had with the patient that if there is no further availability revascularization, he would likely require a transmetatarsal amputation.
[2019-05-16] MEDS ORDERED: VANCOMYCIN TROUGH DUE 1 EACH MISC MISCELLANE ONE (13:00)
--- NOTE | 2019-05-16 16:23 | P.PN ---
Subjective 63-year-old male with history of breast disease hypertension was smoking until 2 weeks ago had a recent amputation of the left second toe on the May at [facility] in [place] left AMA from the hospital as he was getting confusing information from all the doctors that. Patient comes in here with pain in the right leg found to have cellulitis infection. Patient is on Zosyn and vancomycin infectious disease was consulted. Patient was diagnosed with the diabetes with hemoglobin A1c of 6.1 at [facility] 05/16/2019 Patient was evaluated by infectious disease and vascular surgery. Vascular surgery surgery is recommending angioplasty if patient doesn't have any sick good revascularization then will require transmetatarsal amputation. IConstitutional: Denied any fatigue denied any fever. Cardio vascular: denied any chest pain, palpitations Gastrointestinal denied any nausea vomiting Pulmonary: Denied any shortness of breath cough Neurologic denied any new focal deficits All inpatient medications were reviewed and appropriate changes in these medications as dictated in the interval history and assessment and plan. Objective - Vital Signs Vital signs: Vital Signs Temp 98.1 F 05/16/19 15:05 Pulse 79 05/16/19 15:05 Resp 18 05/16/19 15:05 BP 149/76 05/16/19 15:05 Pulse Ox 98 05/16/19 15:05 Intake & Output 05/15/19 05/16/19 05/16/19 18:59 06:59 18:59 Intake Total 700 800 Output Total 1000 550 Balance -300 -550 800 Intake: Intake, IV Titration 100 Amount Piperacillin-Tazobactam 3 100 .375 gm In Sodium Chloride 0.9% 100 ml @ 25 mls/hr IVPB Q8H [facility] Rx#: [id number] Oral 600 800 Output: Urine 1000 550 Other: Voiding Method Urinal Urinal Urinal # Voids 1 3 - Exam PHYSICAL EXAMINATION: GENERAL: The patient is alert and oriented x3, not in any acute distress. Well developed, well nourished. HEENT: Pupils are round and equally reacting to light. EOMI. No scleral icterus. No conjunctival pallor. Normocephalic, atraumatic. No pharyngeal erythema. No thyromegaly. CARDIOVASCULAR: S1 and S2 present. No murmurs, rubs, or gallops. PULMONARY: Chest is clear to auscultation, no wheezing or crackles. ABDOMEN: Soft, nontender, nondistended, normoactive bowel sounds. No palpable organomegaly. MUSCULOSKELETAL: No joint swelling or deformity. EXTREMITIES: No cyanosis, clubbing, or pedal edema. NEUROLOGICAL: Gross neurological examination did not reveal any focal deficits. SKIN: Patient had amputated second right toe, right foot has a dressing - Labs CBC & Chem 7: 05/16/19 07:47 05/16/19 07:47 Labs: Abnormal Lab Results - Last 24 Hours (Table) 05/15/19 05/16/19 Range/Units 02:22 07:47 BUN 5 L (9-20) mg/dL Creatinine 0.64 L (0.66-1.25) mg/dL Hemoglobin A1c 6.2 H (4.0-6.0) % Microbiology - Last 24 Hours (Table) 05/15/19 02:22 Blood Culture - Preliminary Blood No Growth after 24 hours 05/15/19 04:31 Gram Stain - Preliminary Toe - Left Second Wound Culture - Preliminary Assessment and Plan Plan: -Cellulitis and infection of the left foot status post amputation of the left second toe. Awaiting wound cultures and blood cultures. Patient is on Zosyn and vancomycin presently -Peripheral vascular disease: Patient will undergo antiplastic procedure to salvage the right fourth if they're unable to revascularize patient will undergo transmetatarsal amputation --3 diabetes mellitus with hemoglobin A1c 6.1 -Hypertension: Resume on lisinopril -Nicotine abuse, quit smoking 2 weeks ago DVT prophylaxis with heparin subcutaneous and GI prophylaxis with Pepcid
--- NOTE | 2019-05-16 23:03 | P.PN ---
Subjective Progress Note Date: 05/16/19 This is a 63-year-old male gives history that he had an injury to his left foot about a month ago when he tripped in his living room and injured his left foot. Patient states that he developed swelling continued to worsen and he was unable to fit issue on his foot. He ended up at [facility] but was unhappy with care and then went to [facility] in [place]. He had amputation of the second toe done on May 13 and he states vascular surgeon wasn't planning to do bypass surgery and possible transmetatarsal amputation but he did not want to undergo this. He had a second opinion with a bottle sorter and it was determined that he would not have the amputation. He states he was concerned about his care there and left last evening, possibly AGAINST MEDICAL ADVICE and came to [facility] emergency center for evaluation. He was found to be febrile, WBC 12.6, creatinine 0.53, blood sugar 123, albumin 3.4. Patient was started on Zosyn and vancomycin [facility] There is also consult in place for Dr. Martinez. The patient denies any history of diabetes although it is documented in his chart. He is currently an active smoker at 5-6 cigarettes per day and also active marijuana use. He denies alcohol abuse. 05/16/2019 the patient has been seen by the vascular surgeon. There is no data that is become available. Appears angiography will be performed and that hopefully will be a candidate for procedures in attempts to salvage the foot. Relates his pain is better controlled. And he has no other new complaints today. Objective - Vital Signs Vital signs: Vital Signs Temp 98.3 F 05/16/19 21:30 Pulse 78 05/16/19 21:30 Resp 20 05/16/19 21:30 BP 166/83 05/16/19 21:30 Pulse Ox 96 05/16/19 21:30 Intake & Output 05/16/19 05/16/19 05/17/19 06:59 18:59 06:59 Intake Total 800 200 Output Total 550 Balance -550 800 200 Intake: Oral 800 200 Output: Urine 550 Other: Voiding Method Urinal Urinal Urinal # Voids 1 3 1 - Exam Gen: This is a 63-year-old male. He is resting in bed appears to be comfortable and in no acute distress. HEENT: Head is atraumatic, normocephalic. Pupils equal, round. Sclerae is anicteric. Oral mucous membranes are moist. NECK: Supple. No JVD. No lymphadenopathy. No thyromegaly. LUNGS: Clear to auscultation. No wheezes or rhonchi. No intercostal retractions. HEART: Regular rate and rhythm. No murmur. ABDOMEN: Soft. Bowel sounds are present. No masses. No tenderness. EXTREMITIES: No pedal edema. No calf tenderness. Noted amputation to the second toe on the left foot, trace edema, mild erythema to the distal metatarsals. Dorsalis pedis is +1 bilaterally.There is evidence of ulcerations the fifth toe reveal aspect, fourth toe medial and lateral aspects, as well as to the lateral aspect of the third toe NEUROLOGICAL: Patient is awake, alert and oriented x3. Cranial nerves 2 through 12 are grossly intact. - Labs CBC & Chem 7: 05/16/19 07:47 05/16/19 07:47 Labs: Abnormal Lab Results - Last 24 Hours (Table) 05/16/19 Range/Units 07:47 BUN 5 L (9-20) mg/dL Creatinine 0.64 L (0.66-1.25) mg/dL Microbiology - Last 24 Hours (Table) 05/15/19 02:22 Blood Culture - Preliminary Blood No Growth after 24 hours 05/15/19 04:31 Gram Stain - Preliminary Toe - Left Second Wound Culture - Preliminary Laboratory Results WBC 9.7 k/uL (3.8-10.6) 05/16/19 07:47 RBC 4.40 m/uL (4.30-5.90) 05/16/19 07:47 Hgb 13.3 gm/dL (13.0-17.5) 05/16/19 07:47 Hct 40.0 % (39.0-53.0) 05/16/19 07:47 MCV 91.0 fL (80.0-100.0) 05/16/19 07:47 MCH 30.3 pg (25.0-35.0) 05/16/19 07:47 MCHC 33.3 g/dL (31.0-37.0) 05/16/19 07:47 RDW 14.4 % (11.5-15.5) 05/16/19 07:47 Plt Count 223 k/uL (150-450) 05/16/19 07:47 Neutrophils % 84 % 05/15/19 02:22 Lymphocytes % 8 % 05/15/19 02:22 Monocytes % 5 % 05/15/19 02:22 Eosinophils % 2 % 05/15/19 02:22 Basophils % 0 % 05/15/19 02:22 Neutrophils # 10.6 k/uL (1.3-7.7) H 05/15/19 02:22 Lymphocytes # 1.0 k/uL (1.0-4.8) 05/15/19 02:22 Monocytes # 0.7 k/uL (0-1.0) 05/15/19 02:22 Eosinophils # 0.3 k/uL (0-0.7) 05/15/19 02:22 Basophils # 0.0 k/uL (0-0.2) 05/15/19 02:22 Sodium 137 mmol/L (137-145) 05/16/19 07:47 Potassium 4.1 mmol/L (3.5-5.1) 05/16/19 07:47 Chloride 100 mmol/L (98-107) 05/16/19 07:47 Carbon Dioxide 30 mmol/L (22-30) 05/16/19 07:47 Anion Gap 7 mmol/L 05/16/19 07:47 BUN 5 mg/dL (9-20) L 05/16/19 07:47 Creatinine 0.64 mg/dL (0.66-1.25) L 05/16/19 07:47 Est GFR (CKD-EPI)AfAm >90 (>60 ml/min/1.73 sqM) 05/16/19 07:47 Est GFR (CKD-EPI)NonAf >90 (>60 ml/min/1.73 sqM) 05/16/19 07:47 Glucose 96 mg/dL (74-99) 05/16/19 07:47 POC Glucose (mg/dL) 104 mg/dL (75-99) H 05/15/19 12:20 POC Glu Spool Cleaner Hand Cari Rollins 05/15/19 12:[address] Glu mg/dL 131 05/15/19 02:22 Hemoglobin A1c 6.2 % (4.0-6.0) H 05/15/19 02:22 Plasma Lactic Acid [place] 1.2 mmol/L (0.7-2.0) 05/15/19 02:22 Calcium 8.4 mg/dL (8.4-10.2) 05/16/19 07:47 Total Bilirubin 1.0 mg/dL (0.2-1.3) 05/15/19 02:22 AST 21 U/L (17-59) 05/15/19 02:22 ALT 24 U/L (21-72) 05/15/19 02:22 Alkaline Phosphatase 126 U/L (38-126) 05/15/19 02:22 Total Protein 6.1 g/dL (6.3-8.2) L 05/15/19 02:22 Albumin 3.4 g/dL (3.5-5.0) L 05/15/19 02:22 Vancomycin Trough 16.0 ug/mL 05/16/19 13:49 Microbiology 05/15/19 02:22 Blood Blood Culture - Preliminary No Growth after 24 hours 05/15/19 04:31 Toe - Left Second Gram Stain - Preliminary 05/15/19 04:31 Toe - Left Second Wound Culture - Preliminary Assessment and Plan (1) Gangrene of left foot Narrative/Plan: This 63-year-old man has a very significant past medical history as related above. He did leave the [facility] because it was disagreement between the vascular surgeon and the bottle sorter. He is hoping for a vascular procedure for more extensive debridement occurred. There is no reason he had the debridement and amputation of the second toe because of his grossly gangrenous. The patient is to be evaluated by vascular surgery and hopefully can have endovascular procedures in the salvage of the foot if possible. Antimicrobial therapy given his history is with Zosyn and vancomycin pending any further culture data. He understands importance of smoking cessation to allow wounds to heal. He will be monitoring his blood sugar to ensure that this is not elevated. Proteins need to be assessed and supplemented as needed. Multivitamin is helpful. 05/16/2019 the patient is having some pain but is better controlled today. He understands the current plans which include attempts for arthrectomy to try to improve blood flow to salvage the foot. However transmetatarsal amputation may be required. Patient's questions are answered. fortunately pain control is improved today. Current Visit: Yes Status: Acute Code(s): I96 - GANGRENE, NOT ELSEWHERE CLASSIFIED SNOMED Code(s): [id number]
[2019-05-17] MEDS: HYDROmorphone 1 MG/ML 1 ML SYRINGE IVP PRN ×6 (01:43→20:13)
[2019-05-17] MEDS: PIPERACILLIN-TAZOBACTAM 3.375 GM in SODIUM CHLORIDE 0.9% 100 ML IVPB SCH ×3 (03:20→20:12)
[2019-05-17] MEDS: VANCOMYCIN 1,250 MG in SODIUM CHLORIDE 0.9% 250 ML IVPB SCH ×2 (05:07→14:57)
[2019-05-17] MEDS: FAMOTIDINE 20 MG TAB PO SCH ×2 (07:27→20:12)
[2019-05-17] MEDS: HEPARIN SODIUM,PORCINE 5,000 UNIT/ML 1 ML VIAL SQ SCH ×2 (07:27→15:04)
[2019-05-17] MEDS: LISINOPRIL 20 MG TAB PO SCH (07:27)
--- NOTE | 2019-05-17 14:55 | P.PN ---
Subjective 63-year-old male with history of breast disease hypertension was smoking until 2 weeks ago had a recent amputation of the left second toe on the May at [facility] in [place] left AMA from the hospital as he was getting confusing information from all the doctors that. Patient comes in here with pain in the right leg found to have cellulitis infection. Patient is on Zosyn and vancomycin infectious disease was consulted. Patient was diagnosed with the diabetes with hemoglobin A1c of 6.1 at [facility] 05/16/2019 Patient was evaluated by infectious disease and vascular surgery. Vascular surgery surgery is recommending angioplasty if patient doesn't have any sick good revascularization then will require transmetatarsal amputation. 05/17/2019 No overnight events patient will undergo angiogram tomorrow depending on that patient will undergo angioplasty or bypass surgery for his peripheral vessels. IConstitutional: Denied any fatigue denied any fever. Cardio vascular: denied any chest pain, palpitations Gastrointestinal denied any nausea vomiting Pulmonary: Denied any shortness of breath cough Neurologic denied any new focal deficits All inpatient medications were reviewed and appropriate changes in these medications as dictated in the interval history and assessment and plan. Objective - Vital Signs Vital signs: Vital Signs Temp 98.0 F 05/17/19 13:02 Pulse 78 05/17/19 13:02 Resp 16 05/17/19 13:02 BP 168/84 05/17/19 14:02 Pulse Ox 97 05/17/19 13:02 Intake & Output 05/16/19 05/17/19 05/17/19 18:59 06:59 18:59 Intake Total 760 633 2240 Balance 804 697 6610 Intake: Oral 072 687 3619 Other: Voiding Method Urinal Urinal Urinal # Voids 3 3 4 # Bowel Movements 1 - Exam PHYSICAL EXAMINATION: GENERAL: The patient is alert and oriented x3, not in any acute distress. Well developed, well nourished. HEENT: Pupils are round and equally reacting to light. EOMI. No scleral icterus. No conjunctival pallor. Normocephalic, atraumatic. No pharyngeal erythema. No thyromegaly. CARDIOVASCULAR: S1 and S2 present. No murmurs, rubs, or gallops. PULMONARY: Chest is clear to auscultation, no wheezing or crackles. ABDOMEN: Soft, nontender, nondistended, normoactive bowel sounds. No palpable organomegaly. MUSCULOSKELETAL: No joint swelling or deformity. EXTREMITIES: No cyanosis, clubbing, or pedal edema. NEUROLOGICAL: Gross neurological examination did not reveal any focal deficits. SKIN: Patient had amputated second right toe, right foot has a dressing - Labs CBC & Chem 7: 05/16/19 07:47 05/16/19 07:47 Labs: Microbiology - Last 24 Hours (Table) 05/15/19 04:31 Gram Stain - Preliminary Toe - Left Second Wound Culture - Preliminary Presumptive Staph aureus 05/15/19 02:22 Blood Culture - Preliminary Blood No Growth after 48 hours Assessment and Plan Plan: -Cellulitis and infection of the left foot status post amputation of the left second toe. Still Awaiting wound cultures and blood cultures. Patient is on Zosyn and vancomycin presently -Peripheral vascular disease: Patient will undergo antiplastic procedure to salvage the right fourth if they're unable to revascularize patient will undergo transmetatarsal amputation --3 diabetes mellitus with hemoglobin A1c 6.1 -Hypertension: Resume on lisinopril -Nicotine abuse, quit smoking 2 weeks ago DVT prophylaxis with heparin subcutaneous and GI prophylaxis with Pepcid
[2019-05-18] MEDS: VANCOMYCIN 1,250 MG in SODIUM CHLORIDE 0.9% 250 ML IVPB SCH ×4 (00:29→21:25)
[2019-05-18] MEDS: HEPARIN SODIUM,PORCINE 5,000 UNIT/ML 1 ML VIAL SQ SCH ×4 (00:30→23:17)
[2019-05-18] MEDS: HYDROmorphone 1 MG/ML 1 ML SYRINGE IVP PRN ×6 (00:55→23:20)
[2019-05-18] MEDS: PIPERACILLIN-TAZOBACTAM 3.375 GM in SODIUM CHLORIDE 0.9% 100 ML IVPB SCH ×3 (03:47→20:30)
[2019-05-18] MEDS: FAMOTIDINE 20 MG TAB PO SCH ×2 (08:15→20:32)
[2019-05-18] MEDS: LISINOPRIL 20 MG TAB PO SCH (08:15)
[2019-05-18 10:23] LABS: African American GFR (CKD) >90 (>60 ml/min/1.73 sqM)
--- NOTE | 2019-05-18 14:20 | P.PN ---
Subjective 63-year-old male with history of breast disease hypertension was smoking until 2 weeks ago had a recent amputation of the left second toe on the May at [facility] in [place] left AMA from the hospital as he was getting confusing information from all the doctors that. Patient comes in here with pain in the right leg found to have cellulitis infection. Patient is on Zosyn and vancomycin infectious disease was consulted. Patient was diagnosed with the diabetes with hemoglobin A1c of 6.1 at [facility] 05/16/2019 Patient was evaluated by infectious disease and vascular surgery. Vascular surgery surgery is recommending angioplasty if patient doesn't have any sick good revascularization then will require transmetatarsal amputation. 05/17/2019 No overnight events patient will undergo angiogram tomorrow depending on that patient will undergo angioplasty or bypass surgery for his peripheral vessels. 05/18/2019 Patient will undergo angiogram and depending on that he grams results of the peripheral vessels patient will undergo either antidepressive stenting or bypass surgery. Discussed with vascular surgery. Lashae Sanders is scheduled for tomorrow IConstitutional: Denied any fatigue denied any fever. Cardio vascular: denied any chest pain, palpitations Gastrointestinal denied any nausea vomiting Pulmonary: Denied any shortness of breath cough Neurologic denied any new focal deficits All inpatient medications were reviewed and appropriate changes in these medications as dictated in the interval history and assessment and plan. Objective - Vital Signs Vital signs: Vital Signs Temp 98.1 F 05/18/19 04:45 Pulse 79 05/18/19 04:45 Resp 20 05/18/19 04:45 BP 158/75 05/18/19 04:45 Pulse Ox 96 05/18/19 04:45 Intake & Output 05/17/19 05/18/19 05/18/19 18:59 06:59 18:59 Intake Total 1200 500 Balance 1200 500 Intake: Oral 1200 500 Other: Voiding Method Urinal Urinal Urinal # Voids 4 4 # Bowel Movements 1 - Exam PHYSICAL EXAMINATION: GENERAL: The patient is alert and oriented x3, not in any acute distress. Well developed, well nourished. HEENT: Pupils are round and equally reacting to light. EOMI. No scleral icterus. No conjunctival pallor. Normocephalic, atraumatic. No pharyngeal erythema. No thyromegaly. CARDIOVASCULAR: S1 and S2 present. No murmurs, rubs, or gallops. PULMONARY: Chest is clear to auscultation, no wheezing or crackles. ABDOMEN: Soft, nontender, nondistended, normoactive bowel sounds. No palpable organomegaly. MUSCULOSKELETAL: No joint swelling or deformity. EXTREMITIES: No cyanosis, clubbing, or pedal edema. NEUROLOGICAL: Gross neurological examination did not reveal any focal deficits. SKIN: Patient had amputated second right toe, right foot has a dressing - Labs CBC & Chem 7: 05/16/19 07:47 05/18/19 09:11 Labs: Microbiology - Last 24 Hours (Table) 05/15/19 04:31 Gram Stain - Final Toe - Left Second Wound Culture - Final Staphylococcus aureus 05/15/19 02:22 Blood Culture - Preliminary Blood No Growth after 72 hours Assessment and Plan Plan: -Cellulitis and infection of the left foot status post amputation of the left second toe. Cultures are so for negative Patient is on Zosyn and vancomycin presently. -Peripheral vascular disease: Patient will undergo antiplastic procedure to dc vage the right fourth if they're unable to revascularize patient will undergo transmetatarsal amputation --3 diabetes mellitus with hemoglobin A1c 6.1 -Hypertension: Resume on lisinopril -Nicotine abuse, quit smoking 2 weeks ago DVT prophylaxis with heparin subcutaneous and GI prophylaxis with Pepcid
--- NOTE | 2019-05-18 14:50 | P.PN ---
Subjective Progress Note Date: 05/18/19 Principal diagnosis: Left lower extremity critical limb ischemia 63-year-old gentleman with history of peripheral arterial disease seen at the [facility] previously and underwent second toe amputation of the left foot and is currently being treated at the hospital for cellulitis and critical limb ischemia. He states he was worked up at the [facility] and was told that he may need bypass surgery to improve the blood flow and then underwent amputation. He states his surgeon and podiatrists had an argument and therefore he left the hospital and came to [place]. He was placed on antibiotics and over the weekend has been worked up for his peripheral arterial disease with recent arterial Doppler which demonstrated blunted waveforms and diminished blood flow to his bilateral lower extremities with ABIs of 0.45 on the left and 0.58 on the right. There is significant below knee occlusive disease noted in the left lower extremity. Currently he denies any fevers, chills, chest pain or shortness of breath. He states his foot hurts especially at the surgical site. Objective - Vital Signs Vital signs: Vital Signs Temp 98.1 F 05/18/19 04:45 Pulse 79 05/18/19 04:45 Resp 20 05/18/19 04:45 BP 158/75 05/18/19 04:45 Pulse Ox 96 05/18/19 04:45 Intake & Output 05/17/19 05/18/19 05/18/19 18:59 06:59 18:59 Intake Total 1200 500 Balance 1200 500 Intake: Oral 1200 500 Other: Voiding Method Urinal Urinal Urinal # Voids 4 4 # Bowel Movements 1 - Exam Monophasic signal DP on the left. Multiphasic signal of the DP and PT on the right noted. Left second toe amputation site with suture in place with dark eschar noted. Th ere is slow capillary refill noted in the foot and toes. - Constitutional General appearance: Present: average body habitus, cooperative - EENT Eyes: Present: PERRLA - Neck Neck: Present: normal ROM - Cardiovascular Rhythm: regular - Integumentary Integumentary: Present: calor, cellulitis - Neurologic Neurologic: Absent: focal deficits - Psychiatric Psychiatric: Present: A&O x's 3, appropriate affect - Labs CBC & Chem 7: 05/16/19 07:47 05/18/19 09:11 Labs: Microbiology - Last 24 Hours (Table) 05/15/19 04:31 Gram Stain - Final Toe - Left Second Wound Culture - Final Staphylococcus aureus 05/15/19 02:22 Blood Culture - Preliminary Blood No Growth after 72 hours Assessment and Plan Assessment: #1 gangrene left second toe status post amputation #2 cellulitis of left lower extremity #3 left lower extremity critical limb ischemia [place] classification 5 #4 tobacco abuse with recent cessation- 2 weeks #5 newly diagnosed type 2 diabetes #6 regular alcohol use #7 daily marijuana use Plan: Reviewed arterial Doppler with ABIs with the patient in full detail. We will perform angiogram tomorrow with possible intervention. I did discuss with the patient's possibility of endovascular intervention versus bypass depending on what is seen on the angiogram.
[2019-05-18] MEDS: KETOROLAC 30 MG/ML 1 ML VIAL IVP PRN ×2 (15:05→21:19)
[2019-05-18] MEDS: SENNOSIDES 8.6 MG TAB PO SCH (20:33)
[2019-05-19] MEDS: HYDROmorphone 1 MG/ML 1 ML SYRINGE IVP PRN ×5 (04:21→20:47)
[2019-05-19] MEDS: PIPERACILLIN-TAZOBACTAM 3.375 GM in SODIUM CHLORIDE 0.9% 100 ML IVPB SCH ×3 (04:24→20:49)
[2019-05-19] MEDS ORDERED: VANCOMYCIN TROUGH DUE 1 EACH MISC MISCELLANE ONE (05:00)
[2019-05-19 05:23] LABS: HCT 43.3 % (39.0-53.0); HGB 14.3 gm/dL (13.0-17.5); MCH 30.2 pg (25.0-35.0); MCV 91.4 fL (80.0-100.0); Mean Platelet Volume 7.2; Platelet Count 215 k/uL (150-450); RBC 4.74 m/uL (4.30-5.90); RDW 13.8 % (11.5-15.5); WBC 6.9 k/uL (3.8-10.6)
[2019-05-19 05:43] LABS: African American GFR (CKD) >90 (>60 ml/min/1.73 sqM); Anion Gap 6 mmol/L; Blood Urea Nitrogen 7 mg/dL (9-20); Calcium 8.5 mg/dL (8.4-10.2); Carbon Dioxide 31 mmol/L (22-30); Chloride 101 mmol/L (98-107); Glucose 108 mg/dL (74-99); Potassium 3.9 mmol/L (3.5-5.1); Sodium 138 mmol/L (137-145)
[2019-05-19] MEDS: VANCOMYCIN 1,250 MG in SODIUM CHLORIDE 0.9% 250 ML IVPB SCH (05:56)
[2019-05-19] MEDS: SENNOSIDES 8.6 MG TAB PO SCH ×2 (07:39→07:45)
[2019-05-19] MEDS: FAMOTIDINE 20 MG TAB PO SCH ×2 (07:39→20:50)
[2019-05-19] MEDS: LISINOPRIL 20 MG TAB PO SCH (07:39)
[2019-05-19] MEDS: HEPARIN SODIUM,PORCINE 5,000 UNIT/ML 1 ML VIAL SQ SCH ×3 (07:40→23:35)
[2019-05-19] MEDS ORDERED: MIDAZOLAM (PF) 2 MG/2 ML VIAL IV ONE ×2 (11:35→11:40)
[2019-05-19] MEDS ORDERED: IV FLUID CONTINUATION 1,000 ML IV ONE (11:35)
[2019-05-19] MEDS ORDERED: LIDOCAINE 1% INJ 10MG/ML (20 ML MDV) SQ ONE (11:37)
[2019-05-19] MEDS ORDERED: IOPAMIDOL-250 100ML BTL INTRAARTER ONE (11:54)
[2019-05-19] MEDS ORDERED: VANCOMYCIN 1,000 MG in SODIUM CHLORIDE 0.9% 250 ML IVPB SCH ×2 (14:00→18:00)
--- NOTE | 2019-05-19 16:04 | P.PN ---
Subjective Progress Note Date: 05/19/19 Principal diagnosis: This is a 63-year-old male that was admitted for a left foot second toe amputation with cellulitis to the site. Patient was not in the room as he was being taken down for an angiogram with possible intervention with Dr. Lott today. Will continue to monitor closely and await for angiogram report. Objective - Vital Signs Vital signs: Vital Signs Temp 97.6 F 05/19/19 12:14 Pulse 72 05/19/19 13:14 Resp 16 05/19/19 13:14 BP 168/78 05/19/19 13:14 Pulse Ox 98 05/19/19 13:14 Intake & Output 05/18/19 05/19/19 05/19/19 18:59 06:59 18:59 Intake Total 1000 600 Output Total 800 Balance 1000 -200 Intake: IV 50 Intake, IV Titration 250 Amount Vancomycin 1,250 mg In 250 Sodium Chloride 0.9% 250 ml @ 125 mls/hr IVPB Q8H [facility] Rx#:[id number] Oral 1000 300 Output: Urine 800 Other: Voiding Method Toilet Toilet Urinal # Voids 1 2 1 # Bowel Movements 1 - Exam Unable to assess as the patient was already taken down for an angiogram - Labs CBC & Chem 7: 05/19/19 04:58 05/19/19 04:58 Labs: Abnormal Lab Results - Last 24 Hours (Table) 05/19/19 Range/Units 04:58 Carbon Dioxide 31 H (22-30) mmol/L BUN 7 L (9-20) mg/dL Glucose 108 H (74-99) mg/dL Microbiology - Last 24 Hours (Table) 05/15/19 02:22 Blood Culture - Preliminary Blood No Growth after 96 hours Assessment and Plan Assessment: Cellulitis and infection of the left foot status post amputation of the left second toe. Patient is currently on Zosyn and vancomycin peripheral vascular disease: Patient is currently undergoing angiogram with possible intervention with vascular surgery Diabetes mellitus: Hemoglobin A1c is 6.1 Hypertension: Resuming lisinopril Nicotine abuse: Recently quit smoking 2 weeks ago DVT prophylaxis with heparin subq GI prophylaxis with Pepcid Recommendations and discussion: Continue current medications and symptomatic management. Will continue to monitor closely. Will await report from Dr. Lott with vascular surgery and the angiogram report. Will await further recommendations from infectious disease. Continue IV antibiotics. Will continue to monitor labs and vital signs closely. Prognosis is guarded. Further recommendations to follow.
[2019-05-19] MEDS: KETOROLAC 30 MG/ML 1 ML VIAL IVP PRN (23:35)
--- NOTE | 2019-05-19 23:41 | P.PN ---
Subjective Progress Note Date: 05/19/19 This is a 63-year-old male gives history that he had an injury to his left foot about a month ago when he tripped in his living room and injured his left foot. Patient states that he developed swelling continued to worsen and he was unable to fit issue on his foot. He ended up at [facility] but was unhappy with care and then went to [facility] in [place]. He had amputation of the second toe done on May 13 and he states vascular surgeon wasn't planning to do bypass surgery and possible transmetatarsal amputation but he did not want to undergo this. He had a second opinion with a director market intelligence and it was determined that he would not have the amputation. He states he was concerned about his care there and left last evening, possibly AGAINST MEDICAL ADVICE and came to [facility] emergency center for evaluation. He was found to be febrile, WBC 12.6, creatinine 0.53, blood sugar 123, albumin 3.4. Patient was started on Zosyn and vancomycin and admitted to the [facility] floor. There is also consult in place for Dr. Martinez. The patient denies any history of diabetes although it is documented in his chart. He is currently an active smoker at 5-6 cigarettes per day and also active marijuana use. He denies alcohol abuse. 05/16/2019 the patient has been seen by the vascular surgeon. There is no data that is become available. Appears angiography will be performed and that hopefully will be a candidate for procedures in attempts to salvage the foot. Relates his pain is better controlled. And he has no other new complaints today. 05/19/2019 the patient has had his angiography performed. Significant disease is found. Does not appear to be amenable to endovascular procedures. Formal bypasses being considered. Objective - Vital Signs Vital signs: Vital Signs Temp 97.3 F L 05/19/19 16:42 Pulse 72 05/19/19 16:42 Resp 18 05/19/19 16:42 BP 167/98 05/19/19 16:42 Pulse Ox 96 05/19/19 16:42 Intake & Output 05/19/19 05/19/19 05/20/19 06:59 18:59 06:59 Intake Total 840 Output Total 1250 Balance -410 Intake: IV 50 Intake, IV Titration 250 Amount Vancomycin 1,250 mg In 250 Sodium Chloride 0.9% 250 ml @ 125 mls/hr IVPB Q8H [facility] Rx#:[id number] Oral 540 Output: Urine 1250 Other: Voiding Method Toilet Urinal # Voids 2 2 # Bowel Movements 1 - Exam Gen: This is a 63-year-old male. He is resting in bed appears to be comfortable and in no acute distress. HEENT: Head is atraumatic, normocephalic. Pupils equal, round. Sclerae is anicteric. Oral mucous membranes are moist. NECK: Supple. No JVD. No lymphadenopathy. No thyromegaly. LUNGS: Clear to auscultation. No wheezes or rhonchi. No intercostal retractions. HEART: Regular rate and rhythm. No murmur. ABDOMEN: Soft. Bowel sounds are present. No masses. No tenderness. EXTREMITIES: No pedal edema. No calf tenderness. Noted amputation to the second toe on the left foot, trace edema, mild erythema to the distal metatarsals. Dorsalis pedis is +1 bilaterally.There is evidence of ulcerations the fifth toe reveal aspect, fourth toe medial and lateral aspects, as well as to the lateral aspect of the third toe NEUROLOGICAL: Patient is awake, alert and oriented x3. Cranial nerves 2 through 12 are grossly intact. - Labs CBC & Chem 7: 05/19/19 04:58 05/19/19 04:58 Labs: Abnormal Lab Results - Last 24 Hours (Table) 05/19/19 Range/Units 04:58 Carbon Dioxide 31 H (22-30) mmol/L BUN 7 L (9-20) mg/dL Glucose 108 H (74-99) mg/dL Microbiology - Last 24 Hours (Table) 05/15/19 02:22 Blood Culture - Preliminary Blood No Growth after 96 hours Laboratory Results WBC 6.9 k/uL (3.8-10.6) 05/19/19 04:58 RBC 4.74 m/uL (4.30-5.90) 05/19/19 04:58 Hgb 14.3 gm/dL (13.0-17.5) 05/19/19 04:58 Hct 43.3 % (39.0-53.0) 05/19/19 04:58 MCV 91.4 fL (80.0-100.0) 05/19/19 04:58 MCH 30.2 pg (25.0-35.0) 05/19/19 04:58 MCHC 33.0 g/dL (31.0-37.0) 05/19/19 04:58 RDW 13.8 % (11.5-15.5) 05/19/19 04:58 Plt Count 215 k/uL (150-450) 05/19/19 04:58 Neutrophils % 84 % 05/15/19 02:22 Lymphocytes % 8 % 05/15/19 02:22 Monocytes % 5 % 05/15/19 02:22 Eosinophils % 2 % 05/15/19 02:22 Basophils % 0 % 05/15/19 02:22 Neutrophils # 10.6 k/uL (1.3-7.7) H 05/15/19 02:22 Lymphocytes # 1.0 k/uL (1.0-4.8) 05/15/19 02:22 Monocytes # 0.7 k/uL (0-1.0) 05/15/19 02:22 Eosinophils # 0.3 k/uL (0-0.7) 05/15/19 02:22 Basophils # 0.0 k/uL (0-0.2) 05/15/19 02:22 Sodium 138 mmol/L (137-145) 05/19/19 04:58 Potassium 3.9 mmol/L (3.5-5.1) 05/19/19 04:58 Chloride 101 mmol/L (98-107) 05/19/19 04:58 Carbon Dioxide 31 mmol/L (22-30) H 05/19/19 04:58 Anion Gap 6 mmol/L 05/19/19 04:58 BUN 7 mg/dL (9-20) L 05/19/19 04:58 Creatinine 0.74 mg/dL (0.66-1.25) 05/19/19 04:58 Est GFR (CKD-EPI)AfAm >90 (>60 ml/min/1.73 sqM) 05/19/19 04:58 Est GFR (CKD-EPI)NonAf >90 (>60 ml/min/1.73 sqM) 05/19/19 04:58 Glucose 108 mg/dL (74-99) H 05/19/19 04:58 POC Glucose (mg/dL) 104 mg/dL (75-99) H 05/15/19 12:20 POC Glu Certified Industrial Hygienist Cari Rollins 05/15/19 12:[address] Glu mg/dL 131 05/15/19 02:22 Hemoglobin A1c 6.2 % (4.0-6.0) H 05/15/19 02:22 Plasma Lactic Acid [place] 1.2 mmol/L (0.7-2.0) 05/15/19 02:22 Calcium 8.5 mg/dL (8.4-10.2) 05/19/19 04:58 Total Bilirubin 1.0 mg/dL (0.2-1.3) 05/15/19 02:22 AST 21 U/L (17-59) 05/15/19 02:22 ALT 24 U/L (21-72) 05/15/19 02:22 Alkaline Phosphatase 126 U/L (38-126) 05/15/19 02:22 Total Protein 6.1 g/dL (6.3-8.2) L 05/15/19 02:22 Albumin 3.4 g/dL (3.5-5.0) L 05/15/19 02:22 Vancomycin Trough 19.4 ug/mL 05/19/19 04:58 Microbiology 05/15/19 02:22 Blood Blood Culture - Preliminary No Growth after 96 hours 05/15/19 04:31 Toe - Left Second Gram Stain - Final 05/15/19 04:31 Toe - Left Second Wound Culture - Final Staphylococcus aureus Assessment and Plan (1) Gangrene of left foot Narrative/Plan: This 63-year-old man has a very significant past medical history as related above. He did leave the [facility] because it was disagreement between the vascular surgeon and the director market intelligence. He is hoping for a vascular procedure for more extensive debridement occurred. There is no reason he had the debridement and amputation of the second toe because of his grossly gangrenous. The patient is to be evaluated by vascular surgery and hopefully can have endovascular procedures in the salvage of the foot if possible. Antimicrobial therapy given his history is with Zosyn and vancomycin pending any further culture data. He understands importance of smoking cessation to allow wounds to heal. He will be monitoring his blood sugar to ensure that this is not elevated. Proteins need to be assessed and supplemented as needed. Multivitamin is helpful. 05/16/2019 the patient is having some pain but is better controlled today. He understands the current plans which include attempts for arthrectomy to try to improve blood flow to salvage the foot. However transmetatarsal amputation may be required. Patient's questions are answered. fortunately pain control is improved today. 05/19/2019 the patient does have improved pain control. Overall he has stable. Angiogram been performed and likely will require a formal femoropopliteal bypass. Antibiotic therapy will continue with Zosyn given diabetes and gangrene and MSSA has been nicely. Vancomycin discontinued in that MRSA or other resistant gram-positive organisms have not been found. We'll follow. Current Visit: Yes Status: Acute Code(s): I96 - GANGRENE, NOT ELSEWHERE CLASSIFIED SNOMED Code(s): 08234060707201450
[2019-05-20] MEDS: HYDROmorphone 1 MG/ML 1 ML SYRINGE IVP PRN ×7 (00:48→23:47)
[2019-05-20] MEDS: PIPERACILLIN-TAZOBACTAM 3.375 GM in SODIUM CHLORIDE 0.9% 100 ML IVPB SCH ×3 (04:40→20:22)
[2019-05-20] MEDS: HEPARIN SODIUM,PORCINE 5,000 UNIT/ML 1 ML VIAL SQ SCH ×3 (07:35→23:47)
[2019-05-20] MEDS: LISINOPRIL 20 MG TAB PO SCH (07:36)
[2019-05-20] MEDS: SENNOSIDES 8.6 MG TAB PO SCH (07:36)
[2019-05-20] MEDS: FAMOTIDINE 20 MG TAB PO SCH ×2 (07:36→20:22)
--- NOTE | 2019-05-20 09:30 | P.OP ---
Date of Procedure: 05/19/19 Preoperative Diagnosis: Left 2nd toe gangrene, critical limb ischemia Postoperative Diagnosis: Same Procedure(s) Performed: Aortogram with bilateral lower extremity runoff via right femoral artery ultrasound guided access Anesthesia: local, other (moderate sedation x 30 mins) Surgeon: Zac Lott Estimated Blood Loss (ml): 5 Pathology: none sent Condition: stable Disposition: floor Indications for Procedure: 63 year old gentleman with history of 2nd toe amputation of the left foot previously at the [facility] presented to the hospital with complaints of left lower extremity pain. Upon workup it was noted his VENECIA's were diminished bilaterally. He presents today for angiogram to determine future revascularization. Operative Findings: Aorta: Patent without significant athersclerotic disease Iliacs: Patent without significant athersclerotic disease Femorals: bilateral femoral and profunda arteries are patent. Right SFA is patent but occluded at the mid portion with reconstitution below knee tibial. Left SFA with occlusion at takeoff with reconstitution below knee popliteal Popliteal: right popliteal artery is occluded. Left popliteal artery with athersclerotic disease and stenosis Tibials: Difficult to delineate due to lack of contrast. Description of Procedure: After written and informed consent was obtained from the patient and all risks, benefits, and complications were discussed the patient was brought to the bolt labeler and laid in a supine position. The area of the right groin was prepped and draped in the usual sterile fashion. Utilizing the ultrasound the right femoral artery was visualized and accessed with a multipurpose needle and with Seldinger technique a 5 uzbek sheath was placed. An .035 glidewire was then placed into the aorta followed by a pigtail catheter. Aortogram was performed and catheter was then brought down to the bifurcation and runoff angiograms were obtained. Once completed, all guidewires, catheters and sheaths were removed and pressure was held for hemostasis. The patient tolerated the procedure well and was sent to his room for recovery.
--- NOTE | 2019-05-20 09:38 | P.PN ---
Subjective Progress Note Date: 05/20/19 Principal diagnosis: Left lower extremity critical limb ischemia 63-year-old gentleman with history of peripheral arterial disease and angiogram yesterday that shows severe disease of the left lower extremity with occlusion of the SFA. Patient states having worsening discoloration of the great toe on the left. He denies any pain at right femoral artery access site. No other complaints Objective - Vital Signs Vital signs: Vital Signs Temp 97.7 F 05/20/19 07:31 Pulse 65 05/20/19 07:31 Resp 16 05/20/19 07:31 BP 160/78 05/20/19 07:31 Pulse Ox 98 05/20/19 07:31 Intake & Output 05/19/19 05/20/19 05/20/19 18:59 06:59 18:59 Intake Total 840 100 Output Total 1250 550 400 Balance -410 -450 -400 Weight 71.1 kg Intake: IV 50 Intake, IV Titration 250 100 Amount Piperacillin-Tazobactam 3 100 .375 gm In Sodium Chloride 0.9% 100 ml @ 25 mls/hr IVPB Q8H [facility] Rx#: [id number] Vancomycin 1,250 mg In 250 Sodium Chloride 0.9% 250 ml @ 125 mls/hr IVPB Q8H [facility] Rx#:[id number] Oral 540 Output: Urine 1250 550 400 Other: Voiding Method Urinal Urinal Urinal # Voids 2 1 1 - Exam Monophasic signal DP on the left. Multiphasic signal of the DP and PT on the right noted. Left second toe amputation site with suture in place with dark eschar noted. There is slow capillary refill noted in the foot and toes. - Labs CBC & Chem 7: 05/19/19 04:58 05/19/19 04:58 Labs: Microbiology - Last 24 Hours (Table) 05/15/19 02:22 Blood Culture - Preliminary Blood No Growth after 120 hours Assessment and Plan Assessment: #1 gangrene left second toe status post amputation #2 cellulitis of left lower extremity #3 left lower extremity critical limb ischemia [place] classification 5 #4 tobacco abuse with recent cessation- 2 weeks #5 newly diagnosed type 2 diabetes #6 regular alcohol use #7 daily marijuana use Plan: Await vein mapping and will need femoral to popliteal artery below knee bypass later this week after clearance from medicine. We will tentatively schedule for saturday.
--- NOTE | 2019-05-20 11:48 | P.ARTDOP ---
Arterial Doppler LOWER EXTREMITY ARTERIAL DOPPLER: DATE OF SERVICE: 05/16/2019 Reason for study: Rest pain left foot. Doppler waveforms: Multiphasic at the right femoral and monophasic below. Atypical at the left femoral and popliteal and monophasic below.. Pulse volume recording: Digital plethysmography is essentially monophasic to flat line on the left there are some pulsatile signals at the first and third digits on the right but the other digits are flat line. Pressure gradients: Above the low thigh bilaterally more on the left than the right, across the knee bilaterally and to a lesser degree below the knee bilaterally. Ankle-brachial indices: 0.58 on the right and 0.45 on the left. Toe pressures: [] on the right, [] on the left Impression: Moderate right femoral popliteal disease. Moderate to severe left femoral popliteal disease with suspected left iliac component.
--- NOTE | 2019-05-20 16:16 | P.PN ---
Subjective Progress Note Date: 05/20/19 Principal diagnosis: This is a 63-year-old male that was admitted for a left foot second toe amputation with cellulitis to the site. Patient was not in the room as he was being taken down for an angiogram with possible intervention with Dr. Lott today. Will continue to monitor closely and await for angiogram report. 05/20/19 Patient is sitting in bed in no apparent distress awaiting to go down for vein mapping per Dr. Lott as he will most likely need [id number] artery below the knee bypass that is tentatively scheduled for Saturday. Patient denies any shortness of breath, chest pain, or palpitations patient does have some pain in the left foot. Patient denies any nausea or vomiting and is afebrile. Patient is currently still on IV antibiotics of Zosyn. Will continue to monitor. Objective - Vital Signs Vital signs: Vital Signs Temp 98.2 F 05/20/19 15:00 Pulse 80 05/20/19 15:00 Resp 18 05/20/19 15:00 BP 167/78 05/20/19 15:00 Pulse Ox 98 05/20/19 15:00 Intake & Output 05/19/19 05/20/19 05/20/19 18:59 06:59 18:59 Intake Total 840 100 740 Output Total 7487 487 2258 Balance -410 -450 -610 Weight 71.1 kg Intake: IV 50 Intake, IV Titration 250 100 340 Amount IV Fluid Continuation 1, 240 000 ml @ 0 mls/hr IV .STK -[facility] ONE Rx#:[id number] Piperacillin-Tazobactam 3 100 100 .375 gm In Sodium Chloride 0.9% 100 ml @ 25 mls/hr IVPB Q8H [facility] Rx#: [id number] Vancomycin 1,250 mg In 250 Sodium Chloride 0.9% 250 ml @ 125 mls/hr IVPB Q8H [facility] Rx#:[id number] Oral 540 400 Output: Urine 6612 748 8440 Other: Voiding Method Urinal Urinal Urinal # Voids 2 1 1 # Bowel Movements 0 - Exam Gen: This is a 63-year-old male sitting up in the bed in no acute distress. HEENT: Head is atraumatic, normocephalic. Pupils equal, round. Sclerae is anicteric. NECK: Supple. No JVD. No lymphadenopathy. No thyromegaly. LUNGS: Clear to auscultation. No wheezes or rhonchi. No intercostal retractions. HEART: Regular rate and rhythm. No murmur. ABDOMEN: Soft. Bowel sounds are present. No masses. No tenderness. EXTREMITIES: No pedal edema. No calf tenderness. Left foot dressing is dry and intact. Left second toe amputation site is slightly reddened with eschar noted. NEUROLOGICAL: Patient is awake, alert and oriented x3. Cranial nerves 2 through 12 are grossly intact. - Labs CBC & Chem 7: 05/19/19 04:58 05/19/19 04:58 Labs: Microbiology - Last 24 Hours (Table) 05/15/19 02:22 Blood Culture - Preliminary Blood No Growth after 120 hours Assessment and Plan Assessment: Cellulitis and infection of the left foot status post amputation of the left second toe. Patient will continue on Zosyn peripheral vascular disease: Patient is currently underwent angiogram yesterday and awaiting vein mapping today with possible intervention with vascular surgery this Saturday for femoral to popliteal artery below the knee bypass. Diabetes mellitus: Hemoglobin A1c is 6.1 Hypertension: Resuming lisinopril Nicotine abuse: Recently quit smoking 2 weeks ago DVT prophylaxis with heparin subq GI prophylaxis with Pepcid Recommendations and discussion: Continue current medications and symptomatic management. Will continue to monit or closely. Will await further recommendations from infectious disease. Continue IV antibiotics. Will continue to monitor labs and vital signs closely. Tentative bypass on Saturday. Prognosis is guarded. Further recommendations to follow.
[2019-05-21] MEDS: PIPERACILLIN-TAZOBACTAM 3.375 GM in SODIUM CHLORIDE 0.9% 100 ML IVPB SCH ×3 (03:53→21:06)
[2019-05-21] MEDS: HYDROmorphone 1 MG/ML 1 ML SYRINGE IVP PRN ×5 (03:54→21:06)
[2019-05-21] MEDS: LISINOPRIL 20 MG TAB PO SCH (08:16)
[2019-05-21] MEDS: SENNOSIDES 8.6 MG TAB PO SCH (08:16)
[2019-05-21] MEDS: FAMOTIDINE 20 MG TAB PO SCH ×2 (08:16→21:06)
[2019-05-21] MEDS: HEPARIN SODIUM,PORCINE 5,000 UNIT/ML 1 ML VIAL SQ SCH ×3 (08:16→23:01)
[2019-05-21 11:23] VITALS: BMI 26.8
--- NOTE | 2019-05-21 16:25 | P.PN ---
Subjective Progress Note Date: 05/21/19 Patient seen and examined. Essentially unchanged overnight. Still with pain in his left lower extremity. No acute distress Heart regular No respiratory distress Left lower extremity cellulitis of the dorsal foot greatly impoved. Amputation site intact with minimal area of necrosis of the edges. Macerated/dry gangrene between fourth and fifth digit. dressings laced between toes Objective - Vital Signs Vital signs: Vital Signs Temp 98 F 05/21/19 11:28 Pulse 68 05/21/19 11:28 Resp 20 05/21/19 11:28 BP 159/84 05/21/19 11:28 Pulse Ox 100 05/21/19 11:28 Intake & Output 05/20/19 05/21/19 05/21/19 18:59 06:59 18:59 Intake Total 860 360 Output Total 1350 460 650 Balance -490 -460 -290 Weight 70.8 kg 70.8 kg Intake: Intake, IV Titration 340 Amount IV Fluid Continuation 1, 240 000 ml @ 0 mls/hr IV .STK -[facility] Rx#:[id number] Piperacillin-Tazobactam 3 100 .375 gm In Sodium Chloride 0.9% 100 ml @ 25 mls/hr IVPB Q8H [facility] Rx#: [id number] Oral 520 360 Output: Urine 1350 460 650 Other: Voiding Method Urinal Urinal Urinal # Voids 1 1 2 # Bowel Movements 0 - Labs CBC & Chem 7: 05/19/19 04:58 05/19/19 04:58 Labs: Microbiology - Last 24 Hours (Table) 05/15/19 02:22 Blood Culture - Final Blood No Growth after 144 hours Assessment and Plan Plan: #1 gangrene of the toe, left lower extremity status post second toe amputation #2 cellulitis left lower extremity #3 peripheral arterial disease femoro-popliteal #4 tobacco abuse with recent cessation, 2 weeks #5 newly diagnosed diabetes with hemoglobin A1c of 6.1 #6 regular alcohol use #7 daily marijuana use Lower extremity imaging reviewed. Reviewed lower extremity vein mapping. Adequate size vein bilaterally. We'll plan to do a left femoral to below-knee popliteal in situ bypass tomorrow, 05/22. All questions are answered. The patient is seemingly aware and willing to proceed
--- NOTE | 2019-05-21 16:37 | P.PN ---
Subjective Progress Note Date: 05/21/19 Principal diagnosis: This is a 63-year-old male that was admitted for a left foot second toe amputation with cellulitis to the site. Patient was not in the room as he was being taken down for an angiogram with possible intervention with Dr. Lott today. Will continue to monitor closely and await for angiogram report. 05/20/19 Patient is sitting in bed in no apparent distress awaiting to go down for vein mapping per Dr. Lott as he will most likely need [id number]-[id number] artery below the knee bypass that is tentatively scheduled for Saturday. Patient denies any shortness of breath, chest pain, or palpitations patient does have some pain in the left foot. Patient denies any nausea or vomiting and is afebrile. Patient is currently still on IV antibiotics of Zosyn. Will continue to monitor. 05/21/2019 Patient is sitting up at the site of the bed with his left leg elevated as he just returned from the bathroom. Patient appears in no acute distress. Patient states that he is walking fine but is trying not to walk as much on the left foot due to the pain and because he doesn't want to further injure the foot. Patient denies any chest pain, shortness of breath, or palpitations at this time patient remains afebrile. Patient is anticipating a fem-pop bypass in the morning with vascular surgery. Patient is having some tenderness of the left great toe and also the fourth and fifth digit of the left foot. Dressing is intact and dry on the left upper foot. Patient is still on IV antibiotics of Zosyn. Infectious disease is following. Arterial Doppler study yesterday shows moderate right femoral popliteal disease. Moderate to severe left femoral- popliteal disease with suspected left iliac component. Vascular surgery is following. Guarded prognosis Objective - Vital Signs Vital signs: Vital Signs Temp 98 F 05/21/19 11:28 Pulse 68 05/21/19 11:28 Resp 20 05/21/19 11:28 BP 159/84 05/21/19 11:28 Pulse Ox 100 05/21/19 11:28 Intake & Output 05/20/19 05/21/19 05/21/19 18:59 06:59 18:59 Intake Total 860 360 Output Total 1350 460 650 Balance -490 -460 -290 Weight 70.8 kg 70.8 kg Intake: Intake, IV Titration 340 Amount IV Fluid Continuation 1, 240 000 ml @ 0 mls/hr IV .K -[facility] Rx#:[id number] Piperacillin-Tazobactam 3 100 .375 gm In Sodium Chloride 0.9% 100 ml @ 25 mls/hr IVPB Q8H [facility] Rx#: [id number] Oral 520 360 Output: Urine 1350 460 650 Other: Voiding Method Urinal Urinal Urinal # Voids 1 1 2 # Bowel Movements 0 - Exam Gen: This is a 63-year-old male sitting up in the bed in no acute distress. HEENT: Head is atraumatic, normocephalic. Pupils equal, round. Sclerae is anicteric. NECK: Supple. No JVD. No lymphadenopathy. No thyromegaly. LUNGS: Clear to auscultation. No wheezes or rhonchi. No intercostal retractions. HEART: Regular rate and rhythm. No murmur. ABDOMEN: Soft. Bowel sounds are present. No masses. No tenderness. EXTREMITIES: No pedal edema. No calf tenderness. Left foot dressing is dry and intact. Left second toe amputation site is slightly reddened with eschar noted. No changes from previous. NEUROLOGICAL: Patient is awake, alert and oriented x3. Cranial nerves 2 through 12 are grossly intact. Gait is steady - Labs CBC & Chem 7: 05/19/19 04:58 05/19/19 04:58 Labs: Microbiology - Last 24 Hours (Table) 05/15/19 02:22 Blood Culture - Final Blood No Growth after 144 hours Assessment and Plan Assessment: Cellulitis and infection of the left foot status post amputation of the left second toe. Patient will continue on Zosyn. Factious disease is following peripheral vascular disease: Patient is awaiting intervention with vascular surgery in the morning for femoral to popliteal artery below the knee bypass. Diabetes mellitus: Hemoglobin A1c is 6.1 Hypertension: Resuming lisinopril Nicotine abuse: Recently quit smoking 2 weeks ago DVT prophylaxis with heparin subq GI prophylaxis with Pepcid Recommendations and discussion: Continue current medications and symptomatic management. Will continue to monitor closely. Will await further recommendations from infectious disease. Co ntinue IV antibiotics. Will continue to monitor labs and vital signs closely. Fem-pop bypass in the morning with vascular surgery. Prognosis is guarded. Further recommendations to follow.
[2019-05-21] MEDS: KETOROLAC 30 MG/ML 1 ML VIAL IVP PRN (23:02)
[2019-05-22] MEDS: HYDROmorphone 1 MG/ML 1 ML SYRINGE IVP PRN ×4 (00:18→22:57)
[2019-05-22] MEDS: PIPERACILLIN-TAZOBACTAM 3.375 GM in SODIUM CHLORIDE 0.9% 100 ML IVPB SCH ×3 (04:34→20:47)
[2019-05-22] MEDS: LISINOPRIL 20 MG TAB PO SCH (08:43)
[2019-05-22] MEDS: FAMOTIDINE 20 MG TAB PO SCH ×2 (08:43→20:46)
[2019-05-22] MEDS: KETOROLAC 30 MG/ML 1 ML VIAL IVP PRN ×2 (08:43→20:46)
[2019-05-22] MEDS: HEPARIN SODIUM,PORCINE 5,000 UNIT/ML 1 ML VIAL SQ SCH ×2 (08:44→20:49)
[2019-05-22 11:22] LABS: Glucose,Whole Blood 92 mg/dL (75-99)
[2019-05-22] MEDS ORDERED: IV FLUID CONTINUATION 600 ML IV ONE (11:22)
[2019-05-22] MEDS ORDERED: MIDAZOLAM (PF) 2 MG/2 ML VIAL IV ONE (11:47)
[2019-05-22] MEDS ORDERED: HYDROmorphone (PF) 1 MG/ML ONE (12:51)
[2019-05-22] MEDS ORDERED: PROPOFOL 10 MG/ML 20 ML VIAL IV ONE (12:51)
[2019-05-22] MEDS ORDERED: ROCURONIUM BROMIDE 10 MG/ML 10 ML VIAL IV ONE (12:51)
[2019-05-22] MEDS ORDERED: LABETALOL 5 MG/ML VIAL MDV ONE (12:51)
[2019-05-22] MEDS ORDERED: LIDOCAINE 1% INJ 10MG/ML (20 ML MDV) ONE (12:51)
[2019-05-22] MEDS ORDERED: MIDAZOLAM 2 MG/2 ML VIAL ONE (12:51)
[2019-05-22] MEDS ORDERED: fentaNYL (PF) 50 MCG/ML 2 ML AMP ONE (12:51)
--- NOTE | 2019-05-22 13:31 | P.ANPRN ---
Procedure Note - Anesthesia - Invasive Line Right Arterial Line Time Out Performed: Yes Date of Procedure: 05/22/19 Time of Procedure: 11:57 Location of Patient Procedure: PreOp Preparation: Sterile Prep, Sterile Dressing Arterial Line Location: Radial Ultrasound Used: Yes Needle Guage: 20 Narrative: Arterial line placement under sterile conditions per protocol
[2019-05-22] MEDS ORDERED: ceFAZolin 4 GM, BACITRACIN 200,000 UNIT in SODIUM CHLORIDE 0.9% 1,000 ML IRRIGATION ONE (13:33)
[2019-05-22] MEDS ORDERED: HEPARIN SODIUM,PORCINE 10,000 UNIT in SODIUM CHLORIDE 0.9% 1,000 ML IRRIGATION ONE (13:33)
[2019-05-22] MEDS ORDERED: LACTATED RINGERS 1,000 ML IV ONE ×2 (14:37→16:05)
--- NOTE | 2019-05-22 15:26 | P.PN ---
Subjective Progress Note Date: 05/22/19 Principal diagnosis: This is a 63-year-old male that was admitted for a left foot second toe amputation with cellulitis to the site. Patient was not in the room as he was being taken down for an angiogram with possible intervention with Dr. Lott today. Will continue to monitor closely and await for angiogram report. 05/20/19 Patient is sitting in bed in no apparent distress awaiting to go down for vein mapping per Dr. Lott as he will most likely need [id number]-jk-lpmdsbdya artery below the knee bypass that is tentatively scheduled for Saturday. Patient denies any shortness of breath, chest pain, or palpitations patient does have some pain in the left foot. Patient denies any nausea or vomiting and is afebrile. Patient is currently still on IV antibiotics of Zosyn. Will continue to monitor. 05/21/2019 Patient is sitting up at the site of the bed with his left leg elevated as he just returned from the bathroom. Patient appears in no acute distress. Patient states that he is walking fine but is trying not to walk as much on the left foot due to the pain and because he doesn't want to further injure the foot. Patient denies any chest pain, shortness of breath, or palpitations at this time patient remains afebrile. Patient is anticipating a fem-pop bypass in the morning with vascular surgery. Patient is having some tenderness of the left great toe and also the fourth and fifth digit of the left foot. Dressing is intact and dry on the left upper foot. Patient is still on IV antibiotics of Zosyn. Infectious disease is following. Arterial Doppler study yesterday shows moderate right femoral popliteal disease. Moderate to severe left femoral- popliteal disease with suspected left iliac component. Vascular surgery is following. Guarded prognosis 05/22/2019 Patient is sitting up in bed currently reading the Bible. Patient appears to be in no acute distress. Patient states that he is awaiting his bypass procedure with vascular surgery and was told it would be sometime this morning and early afternoon. Patient is currently nothing by mouth for the procedure. Patient states that he is feeling a little anxious about the procedure as he wants it to work and everything to heal properly. Patient denies any shortness of breath, chest pain, or palpitations at this time. Patient is afebrile. Patient states that the will be coming in soon. Prognosis is guarded. Will continue to monitor. Objective - Vital Signs Vital signs: Vital Signs Temp 97.4 F L 05/22/19 10:57 Pulse 77 05/22/19 12:00 Resp 16 05/22/19 12:00 BP 186/91 05/22/19 12:00 Pulse Ox 99 05/22/19 12:00 Intake & Output 05/21/19 05/22/19 05/22/19 18:59 06:59 18:59 Intake Total 840 702 Output Total 650 450 300 Balance 190 -450 402 Weight 70.8 kg 70.3 kg Intake: IV 702 Oral 840 Output: Urine 650 450 300 Other: Voiding Method Urinal Urinal Urinal # Voids 5 1 - Exam Gen: This is a 63-year-old male sitting up in the bed in no acute distress. HEENT: Head is atraumatic, normocephalic. Pupils equal, round. Sclerae is anicteric. NECK: Supple. No JVD. No lymphadenopathy. No thyromegaly. LUNGS: Clear to auscultation. No wheezes or rhonchi. No intercostal retr actions. HEART: Regular rate and rhythm. No murmur. ABDOMEN: Soft. Bowel sounds are present. No masses. No tenderness. EXTREMITIES: No pedal edema. No calf tenderness. Left foot dressing is dry and intact. NEUROLOGICAL: Patient is awake, alert and oriented x3. Cranial nerves 2 through 12 are grossly intact. Gait is steady - Labs CBC & Chem 7: 05/19/19 04:58 05/19/19 04:58 Assessment and Plan Assessment: Cellulitis and infection of the left foot status post amputation of the left second toe. Patient will continue on Zosyn. Infectious disease is following peripheral vascular disease: Patient is awaiting intervention with vascular surgery this morning for femoral to popliteal artery below the knee bypass. Diabetes mellitus: Hemoglobin A1c is 6.1 Hypertension: Resuming lisinopril Nicotine abuse: Recently quit smoking 2 weeks ago DVT prophylaxis with heparin subq GI prophylaxis with Pepcid Recommendations and discussion: Continue current medications and symptomatic management. Will continue to monitor closely. Will await further recommendations from infectious disease and vascular surgery. Continue IV antibiotics. Will continue to monitor labs and vital signs closely. Fem-pop bypass this morning with vascular surgery. Prognosis is guarded. Further recommendations to follow.
[2019-05-22] MEDS: SENNOSIDES 8.6 MG TAB PO SCH (16:42)
--- NOTE | 2019-05-22 17:29 | P.PN ---
Progress Note - Text Progress Note Date: 05/22/19 Patient is undergoing his femoropopliteal bypass procedure today.
[2019-05-22 17:59] LABS: Glucose,Whole Blood 87 mg/dL (75-99)
--- NOTE | 2019-05-22 18:17 | P.OP ---
Description of Procedure: Preoperative diagnosis: Left lower extremity [place] 5 peripheral arterial disease, superficial femoral artery occlusion Postoperative diagnosis: Same, one-vessel runoff Procedure: Left femoral to below-knee popliteal in situ bypass with saphenous vein, left lower extremity angiogram Surgeon: Mckenzie Rodriguez D.O. Network Programmer: Zac Lott DO EBL: 100 mL IV fluids: 1900 mL Drains: Left 10-Turkmen Blue drain Urine output: 400 mL Specimen: None Complications: None Condition: Stable, extubated in the OR to PACU Operative indication and findings: The patient is a 63-year-old male. He initially was seen at another hospital and had a second left toe amputation. At that time he ended up leaving [facility] after confusion of the plan. He presented to this hospital with continued cellulitis. Workup and evaluation revealed significant arterial occlusive disease mainly in his left superficial femoral artery with nonvisualization of any tibial vessels on the preoperative angiogram. Vein mapping was performed which showed adequate appearing veins. Risks and benefits were discussed including but not limited to bleeding, infection, limb loss, heart attack, poor wound healing and . The patient seemingly understood and was willing to proceed. Upon angiogram the left lower extremity, the bypass was patent to the below-knee popliteal artery. There was a wisp of an anterior tibial artery, the dominant vessel was the peroneal artery there was no evidence of any patent posterior tibial artery Procedure in detail: Patient taken to the operative suite placed in supine position and intubated. A Rodriguez catheter was placed. The abdomen and left lower extremity prepped and draped in usual sterile fashion. A preprocedure timeout was performed and all parties are in agreement. An oblique incision was made in the left groin with the scalpel. It was deepened through subcutaneous tissues with electrocautery. The encountered lymphatics were ligated and divided. The femoral sheath was opened sharply. The common femoral artery was dissected free circumferentially. The dissection was extended proximally to the level of the inguinal ligament, and distally to include the superficial femoral and profunda femoris arteries. They were encircled with vessel loops. Attention was then turned towards the below-knee incision. It was made in the medial condyle and deepened through the fascia with care to avoid the saphenous vein. The popliteal artery was identified the popliteal vein was retracted. Vessel loops were placed after careful circumferential dissection . Attention was then turned towards the vein itself at the level of the midcalf. the vein was identified and dissected free. Any branches were ligated with 3-0 silk ties. This was done to the level of the knee. At that point the patient was heparinized and ACT is were followed. Once heparinization was adequate, flow was occluded through the vessel. An 11 blade was utilized and arteriotomy is made the Nunez-Hurd scissors was utilized to enlarge the arteriotomy. There was good inflow from the proximal artery. The saphenous vein was then ligated proximally utilizing 6-0 Prolene. An anastomosis created using 6-0 Prolene between the femoral artery and the saphenous vein. At that point a valvulotome was passed with times with return of adequate blood flow through the graft itself. The vein was marked. An arteriotomy of the popliteal segment was performed. The vein was cut to size and spatulated. Utilizing 6-0 Prolene an anastomosis was created. Hemostasis was achieved with interrupted sutures of 6-0 Prolene and Surgicel. At this point all anastomoses were completed and flow was resumed through the bypass graft. A Doppler was utilized to confirm multiphasic flow distally to the anastomosis. There was not evidence of any pedal pulses. At that point it was decided to perform an angiogram. An 18-gauge angiocatheter was introduced into the craig femoral artery. An angiogram was performed revealing adequate flow through the bypass and into the popliteal artery. There was single-vessel runoff to the peroneal down to the ankle. There was a very tiny anterior tibial artery which occluded shortly after it's take off. There was no evidence of a posterior tibial artery. The wound was copiously irrigated with antibiotic solution. The femoral sheath was reapproximated with interrupted sutures of 3-0 Vicryl. The subcuticular tissue was reapproximated with 3-0 Vicryl. The skin was reprepped with running sutures of 4-0 Monocryl. The popliteal fascia was reapproximated with 3-0 Vicryl. The subcutaneous tissues were reapproximated with 3-0 Vicryl and the skin along the length of the vein harvest was refractory with running 4-0 Monocryl in subcuticular fashion. Incisional wound VAC dressings was placed.
[2019-05-22] MEDS ORDERED: hydrALAZINE HCL 20 MG/ML 1 ML VIAL IVP ONE (18:48)
[2019-05-22] MEDS: HYDROmorphone 1 MG/ML 1 ML SYRINGE IVP ONE ×2 (19:15→19:20)
--- NOTE | 2019-05-22 20:12 | FL ---
Fluoroscopy HISTORY: Femoropopliteal bypass 72 seconds fluoroscopy time supplied to the referring clinician. 3 intraoperative C-arm images docum ent the procedure. See dictated report from vascular surgery.
[2019-05-22] MEDS: RIVAROXABAN 2.5 MG TABLET PO SCH (20:47)
[2019-05-22 22:28] LABS: Basophils % (A) 0 %; Eosinophils # (A) 0.3 k/uL (0-0.7); Eosinophils % (A) 3 %; HCT 44.3 % (39.0-53.0); HGB 14.3 gm/dL (13.0-17.5); Lymphocytes # (A) 0.8 k/uL (1.0-4.8); Lymphocytes % (A) 7 %; MCHC 32.3 g/dL (31.0-37.0); Mean Platelet Volume 6.9; Monocytes # (A) 0.4 k/uL (0-1.0); Monocytes % (A) 4 %; Neutrophils # (A) 9.8 k/uL (1.3-7.7); Neutrophils % (A) 86 %; Platelet Count 226 k/uL (150-450); RBC 4.92 m/uL (4.30-5.90); RDW 13.7 % (11.5-15.5); WBC 11.4 k/uL (3.8-10.6)
[2019-05-23] MEDS: HYDROmorphone 1 MG/ML 1 ML SYRINGE IVP PRN ×6 (03:05→22:38)
[2019-05-23] MEDS: PIPERACILLIN-TAZOBACTAM 3.375 GM in SODIUM CHLORIDE 0.9% 100 ML IVPB SCH ×3 (03:11→20:03)
[2019-05-23 06:01] LABS: HCT 41.7 % (39.0-53.0); HGB 13.8 gm/dL (13.0-17.5); MCH 29.8 pg (25.0-35.0); MCHC 33.2 g/dL (31.0-37.0); MCV 89.7 fL (80.0-100.0); Mean Platelet Volume 7.5; Platelet Count 216 k/uL (150-450); RBC 4.65 m/uL (4.30-5.90); RDW 14.6 % (11.5-15.5); WBC 9.6 k/uL (3.8-10.6)
[2019-05-23] MEDS: KETOROLAC 30 MG/ML 1 ML VIAL IVP PRN (08:18)
[2019-05-23] MEDS: SENNOSIDES 8.6 MG TAB PO SCH (08:19)
[2019-05-23] MEDS: LISINOPRIL 20 MG TAB PO SCH (08:19)
[2019-05-23] MEDS: FAMOTIDINE 20 MG TAB PO SCH ×2 (08:19→20:03)
[2019-05-23] MEDS: RIVAROXABAN 2.5 MG TABLET PO SCH ×2 (08:19→20:03)
--- NOTE | 2019-05-23 11:07 | P.PN ---
Subjective Progress Note Date: 05/23/19 Principal diagnosis: Left lower extremity critical limb ischemia Patient seen and examined at bedside. Doing well overnight with some pain at his surgical sites. He is also complaining of increased swelling of his left lower extremity as well as intermittent sharp pain and throbbing in his foot. He denies any nausea, vomiting, fevers, chills, chest pain or shortness of breat h. Objective - Vital Signs Vital signs: Vital Signs Temp 98.1 F 05/23/19 08:00 Pulse 76 05/23/19 08:00 Resp 16 05/23/19 08:00 BP 146/67 05/23/19 08:00 Pulse Ox 98 05/23/19 08:00 Intake & Output 05/22/19 05/23/19 05/23/19 18:59 06:59 18:59 Intake Total 1902 644 360 Output Total 800 155 Balance 1102 489 360 Weight 71.6 kg Intake: IV 1902 200 Oral 444 360 Output: Urine 700 150 Estimated Blood Loss 100 5 Other: Voiding Method Urinal Indwelling Catheter Indwelling Catheter - Exam Multiphasic signal DP on the left lower extremity with palpable pulse at the bypass. Foot is warm. 1+ pitting edema of the left lower extremity. The incisional wound VAC is in place. Minimal tenderness to palpation at the surgical sites. - Constitutional General appearance: Present: average body habitus, cooperative, mild distress - EENT Eyes: Present: PERRLA - Respiratory Respiratory: bilateral: CTA - Cardiovascular Rhythm: regular - Psychiatric Psychiatric: Present: A&O x's 3, appropriate affect, intact judgment & insight - Labs CBC & Chem 7: 05/23/19 05:49 05/19/19 04:58 Labs: Abnormal Lab Results - Last 24 Hours (Table) 05/22/19 Range/Units 22:05 WBC 11.4 H (3.8-10.6) k/uL Neutrophils # 9.8 H (1.3-7.7) k/uL Lymphocytes # 0.8 L (1.0-4.8) k/uL Assessment and Plan Assessment: #1 POD 1 left femoral tibial artery bypass with insitu vein graft secondary #2 gangrene left second toe status post amputation with cellulitis of left lower extremity #3 left lower extremity critical limb ischemia Natalie classification 5 #4 tobacco abuse with recent cessation- 2 weeks #5 newly diagnosed type 2 diabetes #6 regular alcohol use #7 daily marijuana use Plan: Continue pain control. RUSLAN fish. We will DC CITLALY drain tomorrow. Continue medications - oral anticoagulation with Xarelto, statin and aspirin. Increase activity, ambulate with assistance. PT to evaluate. Incisional wound VAC to stay in place 6 days. Patient is stable from a vascular standpoint. Okay to work on discharge planning which he may need therapy upon discharge.
--- NOTE | 2019-05-23 12:45 | P.PN ---
Subjective 63-year-old male that was admitted for a left foot second toe amputation with cellulitis to the site. Patient was not in the room as he was being taken down for an angiogram with possible intervention with Dr. Lott today. Will continue to monitor closely and await for angiogram report. 05/20/19 Patient is sitting in bed in no apparent distress awaiting to go down for vein mapping per Dr. Lott as he will most likely need [id number] artery below the knee bypass that is tentatively scheduled for Saturday. Patient denies any shortness of breath, chest pain, or palpitations patient does have some pain in the left foot. Patient denies any nausea or vomiting and is afebrile. Patient is currently still on IV antibiotics of Zosyn. Will continue to monitor. 05/21/2019 Patient is sitting up at the site of the bed with his left leg elevated as he just returned from the bathroom. Patient appears in no acute distress. Patient states that he is walking fine but is trying not to walk as much on the left foot due to the pain and because he doesn't want to further injure the foot. Patient denies any chest pain, shortness of breath, or palpitations at this time patient remains afebrile. Patient is anticipating a fem-pop bypass in the morning with vascular surgery. Patient is having some tenderness of the left great toe and also the fourth and fifth digit of the left foot. Dressing is intact and dry on the left upper foot. Patient is still on IV antibiotics of Zosyn. Infectious disease is following. Arterial Doppler study yesterday shows moderate right femoral popliteal disease. Moderate to severe left femoral- popliteal disease with suspected left iliac component. Vascular surgery is following. Guarded prognosis 05/22/2019 Patient is sitting up in bed currently reading the Bible. Patient appears to be in no acute distress. Patient states that he is awaiting his bypass procedure with vascular surgery and was told it would be sometime this morning and early afternoon. Patient is currently nothing by mouth for the procedure. Patient states that he is feeling a little anxious about the procedure as he wants it to work and everything to heal properly. Patient denies any shortness of breath, c hest pain, or palpitations at this time. Patient is afebrile. Patient states that the will be coming in soon. Prognosis is guarded. Will continue to monitor. 05/23/2019 Patient underwent femoropopliteal bypass surgery yesterday, plan is to discontinue Rodriguez catheter discontinued CITLALY drain today and wound VAC to stay in place. PT and OT will evaluate the patient. May require subacute rolanda abilitation placement Constitutional: Denied any fatigue denied any fever. Cardio vascular: denied any chest pain, palpitations Gastrointestinal denied any nausea vomiting Pulmonary: Denied any shortness of breath cough Neurologic denied any new focal deficits All inpatient medications were reviewed and appropriate changes in these medications as dictated in the interval history and assessment and plan. Objective - Vital Signs Vital signs: Vital Signs Temp 98.1 F 05/23/19 08:00 Pulse 76 05/23/19 08:00 Resp 16 05/23/19 08:00 BP 146/67 05/23/19 08:00 Pulse Ox 98 05/23/19 08:00 Intake & Output 05/22/19 05/23/19 05/23/19 18:59 06:59 18:59 Intake Total 1902 644 360 Output Total 800 155 Balance 1102 489 360 Weight 71.6 kg Intake: IV 1902 200 Oral 444 360 Output: Urine 700 150 Estimated Blood Loss 100 5 Other: Voiding Method Urinal Indwelling Catheter Indwelling Catheter - Exam PHYSICAL EXAMINATION: GENERAL: The patient is alert and oriented x3, not in any acute distress. Well developed, well nourished. HEENT: Pupils are round and equally reacting to light. EOMI. No scleral icterus. No conjunctival pallor. Normocephalic, atraumatic. No pharyngeal erythema. No thyromegaly. CARDIOVASCULAR: S1 and S2 present. No murmurs, rubs, or gallops. PULMONARY: Chest is clear to auscultation, no wheezing or crackles. ABDOMEN: Soft, nontender, nondistended, normoactive bowel sounds. No palpable organomegaly. MUSCULOSKELETAL: No joint swelling or deformity. EXTREMITIES: No cyanosis, clubbing, or pedal edema. NEUROLOGICAL: Gross neurological examination did not reveal any focal deficits. SKIN: Patient had amputated second right toe, right foot has a dressing - Labs CBC & Chem 7: 05/23/19 05:49 05/19/19 04:58 Labs: Abnormal Lab Results - Last 24 Hours (Table) 05/22/19 Range/Units 22:05 WBC 11.4 H (3.8-10.6) k/uL Neutrophils # 9.8 H (1.3-7.7) k/uL Lymphocytes # 0.8 L (1.0-4.8) k/uL Assessment and Plan Plan: Assessment and Plan Assessment: Cellulitis and infection of the left foot status post amputation of the left second toe. Patient will continue on Zosyn. Infectious disease is following peripheral vascular disease: She and is parous status post femoropopliteal bypass Diabetes mellitus: Hemoglobin A1c is 6.1 Hypertension: On lisinopril Nicotine abuse: Recently quit smoking 2 weeks ago DVT prophylaxis with heparin subq GI prophylaxis with Pepcid
[2019-05-24] MEDS: HYDROmorphone 1 MG/ML 1 ML SYRINGE IVP PRN ×7 (01:53→22:08)
[2019-05-24] MEDS: PIPERACILLIN-TAZOBACTAM 3.375 GM in SODIUM CHLORIDE 0.9% 100 ML IVPB SCH ×3 (04:54→20:27)
[2019-05-24 06:42] LABS: HCT 40.1 % (39.0-53.0); MCH 29.5 pg (25.0-35.0); MCHC 32.5 g/dL (31.0-37.0); MCV 90.8 fL (80.0-100.0); Mean Platelet Volume 7.8; Platelet Count 234 k/uL (150-450); RBC 4.41 m/uL (4.30-5.90); RDW 15.1 % (11.5-15.5); WBC 9.3 k/uL (3.8-10.6)
[2019-05-24 07:03] LABS: African American GFR (CKD) >90 (>60 ml/min/1.73 sqM); Anion Gap 8 mmol/L; Blood Urea Nitrogen 6 mg/dL (9-20); Calcium 8.4 mg/dL (8.4-10.2); Carbon Dioxide 28 mmol/L (22-30); Chloride 102 mmol/L (98-107); Glucose 103 mg/dL (74-99); Potassium 3.7 mmol/L (3.5-5.1); Sodium 138 mmol/L (137-145)
[2019-05-24] MEDS: RIVAROXABAN 2.5 MG TABLET PO SCH ×2 (08:18→20:26)
[2019-05-24] MEDS: LISINOPRIL 20 MG TAB PO SCH (08:18)
[2019-05-24] MEDS: FAMOTIDINE 20 MG TAB PO SCH ×2 (08:18→20:26)
[2019-05-24] MEDS: SENNOSIDES 8.6 MG TAB PO SCH (08:18)
--- NOTE | 2019-05-24 10:06 | P.PN ---
Subjective Progress Note Date: 05/24/19 Principal diagnosis: Left lower extremity critical limb ischemia Patient seen and examined at bedside. Doing well overnight with some pain at his surgical sites. The incisional wound vac without seal all night and beeping. Some clear drainage according to the patient. He is also complaining of increased swelling of his left lower extremity as well as intermittent sharp pain and throbbing in his foot. He denies any nausea, vomiting, fevers, chills, chest pain or shortness of breath. Objective - Vital Signs Vital signs: Vital Signs Temp 98.1 F 05/24/19 00:00 Pulse 74 05/24/19 00:00 Resp 16 05/24/19 00:00 BP 152/74 05/24/19 00:00 Pulse Ox 97 05/24/19 00:00 Intake & Output 05/23/19 05/24/19 05/24/19 18:59 06:59 18:59 Intake Total 1080 240 Output Total 675 700 Balance 405 -700 240 Weight 86 kg Intake: Oral 1080 240 Output: Urine 675 700 Uretheral (Rodriguez) 450 Other: Voiding Method Indwelling Catheter Urinal - Exam Multiphasic signal DP on the left lower extremity with palpable pulse at the bypass. Foot is warm. 1+ pitting edema of the left lower extremity. The incisional wound VAC is in place but with minimal seal. CITLALY drain is under dressings for VAC. Minimal tenderness to palpation at the surgical sites. - Labs CBC & Chem 7: 05/24/19 05:50 05/24/19 05:50 Labs: Abnormal Lab Results - Last 24 Hours (Table) 05/24/19 Range/Units 05:50 BUN 6 L (9-20) mg/dL Glucose 103 H (74-99) mg/dL Assessment and Plan Assessment: #1 POD 2 left femoral tibial artery bypass with insitu vein graft secondary #2 gangrene left second toe status post amputation with cellulitis of left lower extremity #3 left lower extremity critical limb ischemia Natalie classification 5 #4 tobacco abuse with recent cessation- 2 weeks #5 newly diagnosed type 2 diabetes #6 regular alcohol use #7 daily marijuana use Plan: Continue pain control. CITLALY drain discontinued as well as the incisional VAC. Continue medications - oral anticoagulation with Xarelto, statin and aspirin. Increase activity, ambulate with assistance. PT to evaluate. Patient is stable from a vascular standpoint. Okay to work on discharge planning which he may need therapy upon discharge.
--- NOTE | 2019-05-24 13:53 | P.PN ---
Subjective 63-year-old male that was admitted for a left foot second toe amputation with cellulitis to the site. Patient was not in the room as he was being taken down for an angiogram with possible intervention with Dr. Lott today. Will continue to monitor closely and await for angiogram report. 05/20/19 Patient is sitting in bed in no apparent distress awaiting to go down for vein mapping per Dr. Lott as he will most likely need [id number] artery below the knee bypass that is tentatively scheduled for Saturday. Patient denies any shortness of breath, chest pain, or palpitations patient does have some pain in the left foot. Patient denies any nausea or vomiting and is afebrile. Patient is currently still on IV antibiotics of Zosyn. Will continue to monitor. 05/21/2019 Patient is sitting up at the site of the bed with his left leg elevated as he just returned from the bathroom. Patient appears in no acute distress. Patient states that he is walking fine but is trying not to walk as much on the left foot due to the pain and because he doesn't want to further injure the foot. Patient denies any chest pain, shortness of breath, or palpitations at this time patient remains afebrile. Patient is anticipating a fem-pop bypass in the morning with vascular surgery. Patient is having some tenderness of the left great toe and also the fourth and fifth digit of the left foot. Dressing is intact and dry on the left upper foot. Patient is still on IV antibiotics of Zosyn. Infectious disease is following. Arterial Doppler study yesterday shows moderate right femoral popliteal disease. Moderate to severe left femoral- popliteal disease with suspected left iliac component. Vascular surgery is following. Guarded prognosis 05/22/2019 Patient is sitting up in bed currently reading the Bible. Patient appears to be in no acute distress. Patient states that he is awaiting his bypass procedure with vascular surgery and was told it would be sometime this morning and early afternoon. Patient is currently nothing by mouth for the procedure. Patient states that he is feeling a little anxious about the procedure as he wants it to work and everything to heal properly. Patient denies any shortness of breath, c hest pain, or palpitations at this time. Patient is afebrile. Patient states that the will be coming in soon. Prognosis is guarded. Will continue to monitor. 05/23/2019 Patient underwent femoropopliteal bypass surgery yesterday, plan is to discontinue Rodriguez catheter discontinued CITLALY drain today and wound VAC to stay in place. PT and OT will evaluate the patient. May require subacute rolanda abilitation placement 05/24/2019 Patient is still having pain did not have a bowel movement the patient is on bowel regimen patient was started on Toradol to help her no added the Dilaudid Constitutional: Denied any fatigue denied any fever. Cardio vascular: denied any chest pain, palpitations Gastrointestinal denied any nausea vomiting Pulmonary: Denied any shortness of breath cough Neurologic denied any new focal deficits All inpatient medications were reviewed and appropriate changes in these medications as dictated in the interval history and assessment and plan. Objective - Vital Signs Vital signs: Vital Signs Temp 98.1 F 05/24/19 07:00 Pulse 74 05/24/19 08:00 Resp 16 05/24/19 08:00 BP 159/73 05/24/19 07:00 Pulse Ox 96 05/24/19 07:00 Intake & Output 05/23/19 05/24/19 05/24/19 18:59 06:59 18:59 Intake Total 1080 240 Output Total 675 700 Balance 405 -700 240 Weight 86 kg Intake: Oral 1080 240 Output: Urine 675 700 Uretheral (Rodriguez) 450 Other: Voiding Method Indwelling Catheter Urinal Urinal - Exam PHYSICAL EXAMINATION: GENERAL: The patient is alert and oriented x3, not in any acute distress. Well developed, well nourished. HEENT: Pupils are round and equally reacting to light. EOMI. No scleral icterus. No conjunctival pallor. Normocephalic, atraumatic. No pharyngeal erythema. No thyromegaly. CARDIOVASCULAR: S1 and S2 present. No murmurs, rubs, or gallops. PULMONARY: Chest is clear to auscultation, no wheezing or crackles. ABDOMEN: Soft, nontender, nondistended, normoactive bowel sounds. No palpable organomegaly. MUSCULOSKELETAL: No joint swelling or deformity. EXTREMITIES: No cyanosis, clubbing, or pedal edema. NEUROLOGICAL: Gross neurological examination did not reveal any focal deficits. SKIN: Patient had amputated second right toe, right foot has a dressing - Labs CBC & Chem 7: 05/24/19 05:50 05/24/19 05:50 Labs: Abnormal Lab Results - Last 24 Hours (Table) 05/24/19 Range/Units 05:50 BUN 6 L (9-20) mg/dL Glucose 103 H (74-99) mg/dL Assessment and Plan Plan: Assessment and Plan Assessment: Cellulitis and infection of the left foot status post amputation of the left second toe. Patient will continue on Zosyn. Infectious disease is following peripheral vascular disease: She and is parous status post femoropopliteal bypass Patient doesn't have any diabetes mellitus patient's immobility and 6.1 Hypertension: On lisinopril Nicotine abuse: Recently quit smoking 2 weeks ago DVT prophylaxis with heparin subq GI prophylaxis with Pepcid
[2019-05-24] MEDS: KETOROLAC 30 MG/ML 1 ML VIAL IVP SCH (16:49)
[2019-05-25] MEDS: KETOROLAC 30 MG/ML 1 ML VIAL IVP SCH ×4 (00:20→17:42)
[2019-05-25] MEDS: HYDROmorphone 1 MG/ML 1 ML SYRINGE IVP PRN ×2 (01:45→08:16)
[2019-05-25] MEDS: PIPERACILLIN-TAZOBACTAM 3.375 GM in SODIUM CHLORIDE 0.9% 100 ML IVPB SCH ×3 (04:12→19:59)
[2019-05-25 07:28] LABS: HCT 43.7 % (39.0-53.0); HGB 14.1 gm/dL (13.0-17.5); MCH 29.2 pg (25.0-35.0); MCHC 32.2 g/dL (31.0-37.0); MCV 90.9 fL (80.0-100.0); Mean Platelet Volume 7.3; Platelet Count 263 k/uL (150-450); RBC 4.81 m/uL (4.30-5.90); RDW 14.1 % (11.5-15.5); WBC 8.3 k/uL (3.8-10.6)
[2019-05-25] MEDS: RIVAROXABAN 2.5 MG TABLET PO SCH ×2 (08:17→21:05)
[2019-05-25] MEDS: FAMOTIDINE 20 MG TAB PO SCH ×2 (08:17→19:59)
[2019-05-25] MEDS: LISINOPRIL 20 MG TAB PO SCH (08:17)
[2019-05-25] MEDS: SENNOSIDES 8.6 MG TAB PO SCH (08:17)
--- NOTE | 2019-05-25 11:09 | P.PN ---
Subjective Progress Note Date: 05/25/19 Doing well overal. Pain controlled. Foot feels warmer than preop NAD No resp distress abd soft, NT/ND BLE warm. palp pulse in graft. mild LLE edema as expected. POD#3 L fem-pop bypass with in situ vein PAD L 2nd toe gangrene s/p amputation Continue local wound care, follow with wound care upon DC. Increase activity as tolerated. Okay for DC from vascular surg standpoint. Continue Xarelto 2.5mg BID for PAD. F/U in 2 weeks in office Objective - Vital Signs Vital signs: Vital Signs Temp 97.6 F 05/24/19 22:39 Pulse 71 05/25/19 06:03 Resp 16 05/25/19 06:03 BP 176/79 05/25/19 06:03 Pulse Ox 98 05/25/19 06:03 Intake & Output 05/24/19 05/25/19 05/25/19 18:59 06:59 18:59 Intake Total 2019 360 240 Output Total 200 Balance 2019 160 240 Intake: Intake, IV Titration 180 Amount IV Fluid Continuation 1, 80 000 ml @ 0 mls/hr IV .STK -[facility] Rx#:[id number] Piperacillin-Tazobactam 3 100 .375 gm In Sodium Chloride 0.9% 100 ml @ 25 mls/hr IVPB Q8H [facility] Rx#: [id number] Oral 1840 360 240 Output: Urine 200 Other: Voiding Method Urinal # Voids 1 - Labs CBC & Chem 7: 05/25/19 06:44 05/24/19 05:50
[2019-05-25] MEDS ORDERED: HYDROcodone/APAP 5-325MG 1 EACH TAB PO PRN (13:11)
[2019-05-25] MEDS: traMADol 50 MG TAB PO SCH ×2 (16:07→21:05)
--- NOTE | 2019-05-25 16:34 | P.PN ---
Subjective Progress Note Date: 05/25/19 Principal diagnosis: This is a 63-year-old male that was admitted for a left foot second toe amputation with cellulitis to the site. Patient was not in the room as he was being taken down for an angiogram with possible intervention with Dr. Lott today. Will continue to monitor closely and await for angiogram report. 05/20/19 Patient is sitting in bed in no apparent distress awaiting to go down for vein mapping per Dr. Lott as he will most likely need [id number] artery below the knee bypass that is tentatively scheduled for Saturday. Patient denies any shortness of breath, chest pain, or palpitations patient does have some pain in the left foot. Patient denies any nausea or vomiting and is afebrile. Patient is currently still on IV antibiotics of Zosyn. Will continue to monitor. 05/21/2019 Patient is sitting up at the site of the bed with his left leg elevated as he just returned from the bathroom. Patient appears in no acute distress. Patient states that he is walking fine but is trying not to walk as much on the left foot due to the pain and because he doesn't want to further injure the foot. Patient denies any chest pain, shortness of breath, or palpitations at this time patient remains afebrile. Patient is anticipating a fem-pop bypass in the morning with vascular surgery. Patient is having some tenderness of the left great toe and also the fourth and fifth digit of the left foot. Dressing is intact and dry on the left upper foot. Patient is still on IV antibiotics of Zosyn. Infectious disease is following. Arterial Doppler study yesterday shows moderate right femoral popliteal disease. Moderate to severe left femoral- popliteal disease with suspected left iliac component. Vascular surgery is following. Guarded prognosis 05/22/2019 Patient is sitting up in bed currently reading the Bible. Patient appears to be in no acute distress. Patient states that he is awaiting his bypass procedure with vascular surgery and was told it would be sometime this morning and early afternoon. Patient is currently nothing by mouth for the procedure. Patient states that he is feeling a little anxious about the procedure as he wants it to work and everything to heal properly. Patient denies any shortness of breath, chest pain, or palpitations at this time. Patient is afebrile. Patient states that the will be coming in soon. Prognosis is guarded. Will continue to monitor. 05/25/2019 Patient is sitting up in the recliner in no acute distress. Patient states that he still having some pain in his left foot. Patient had a large bowel movement today and feels much better as he hadn't had one in for 5 days. Patient denies any nausea, vomiting, or diarrhea at this time. Patient remains afebrile. Patient denies any chest pain, shortness of breath, palpitations at this time. Patient states that Dr. Rodriguez stated he could go home from their standpoint and follow-up in the clinic this week. Patient is concerned about how he is going to pay for his medications upon discharge. Case management is aware and is working with him. Patient does not want to go to inpatient rehab at this time and would like to do so in an outpatient basis. Pain management is being changed to oral today and will continue to monitor closely. We'll continue to monitor vital signs and labs closely. Patient is looking forward to going home. Patient had a steady gait to the bathroom and was not using a walker. patient was reminded to use the walker for assistance and also to not place a lot of pressure on that left foot. Objective - Vital Signs Vital signs: Vital Signs Temp 98.0 F 05/25/19 14:27 Pulse 66 05/25/19 15:30 Resp 16 05/25/19 15:30 BP 173/84 05/25/19 14:27 Pulse Ox 99 05/25/19 14:27 Intake & Output 05/24/19 05/25/19 05/25/19 18:59 06:59 18:59 Intake Total 2020 360 540 Output Total 200 900 Balance 2020 160 -360 Intake: Intake, IV Titration 180 180 Amount IV Fluid Continuation 1, 80 80 000 ml @ 0 mls/hr IV .STK [facility] Rx#:[id number] Piperacillin-Tazobactam 3 100 100 .375 gm In Sodium Chloride 0.9% 100 ml @ 25 mls/hr IVPB Q8H [facility] Rx#: [id number] Oral 1840 360 360 Output: Urine 200 900 Other: Voiding Method Urinal Urinal # Voids 1 - Exam Gen: This is a 63-year-old male sitting up in the recliner in no acute distress. HEENT: Head is atraumatic, normocephalic. Pupils equal, round. Sclerae is anicteric. NECK: Supple. No JVD. No lymphadenopathy. No thyromegaly. LUNGS: Clear to auscultation. No wheezes or rhonchi. No intercostal retractions. HEART: Regular rate and rhythm. No murmur. ABDOMEN: Soft. Bowel sounds are present. No masses. No tenderness. EXTREMITIES: No pedal edema. No calf tenderness. Left foot dressing is dry and intact. Mild left leg swelling noted. NEUROLOGICAL: Patient is awake, alert and oriented x3. Cranial nerves 2 through 12 are grossly intact. Gait is steady - Labs CBC & Chem 7: 05/25/19 06:44 05/24/19 05:50 Assessment and Plan Assessment: Cellulitis and infection of the left foot status post amputation of the left second toe. Patient will continue on Zosyn. Infectious disease is following. A midline was placed and awaiting authorization for antibiotics for outpatient setting. peripheral vascular disease: Patient underwent femoral to popliteal artery below the knee bypass of the left leg Diabetes mellitus: Hemoglobin A1c is 6.1 Hypertension: Resuming lisinopril Nicotine abuse: Recently quit smoking 2 weeks ago DVT prophylaxis with heparin subq GI prophylaxis with Pepcid Recommendations and discussion: Continue current medications and symptomatic management. Will continue to monitor closely. Will await further recommendations from infectious disease about outpatient antibiotic therapy. Continue IV antibiotics. Will continue to monitor labs and vital signs closely. Prognosis is guarded. Further recommendations to follow. Probable discharge in 24 hours
[2019-05-25] MEDS: ALPRAZolam 0.5 MG TAB PO PRN (17:43)
[2019-05-26] MEDS: KETOROLAC 30 MG/ML 1 ML VIAL IVP SCH ×5 (00:29→23:11)
[2019-05-26] MEDS: PIPERACILLIN-TAZOBACTAM 3.375 GM in SODIUM CHLORIDE 0.9% 100 ML IVPB SCH ×2 (03:25→12:29)
[2019-05-26] MEDS: ALPRAZolam 0.5 MG TAB PO PRN (06:34)
--- NOTE | 2019-05-26 07:54 | IR ---
Fluoroscopy HISTORY: Pain in bilateral feet 1.9 minutes fluoroscopy time supplied to the referring clinician. 137 intraoperative C-arm images do cument the procedure. See dictated report from vascular surgery.
[2019-05-26] MEDS: LISINOPRIL 20 MG TAB PO SCH (09:07)
[2019-05-26] MEDS: traMADol 50 MG TAB PO SCH ×3 (09:07→21:08)
[2019-05-26] MEDS: RIVAROXABAN 2.5 MG TABLET PO SCH (09:08)
[2019-05-26] MEDS: FAMOTIDINE 20 MG TAB PO SCH ×2 (09:08→20:10)
[2019-05-26] MEDS: SENNOSIDES 8.6 MG TAB PO SCH (09:08)
--- NOTE | 2019-05-26 11:04 | P.PN ---
Subjective Progress Note Date: 05/26/19 Principal diagnosis: Left lower extremity critical limb ischemia Patient seen and examined at bedside. Doing well overnight. Patient states his pain is well controlled. He has some blisters noted around his incision sites per the nursing staff. He did get up and ambulate on his heel without issue. He denies any fevers, chills, chest pain or shortness of breath. Objective - Vital Signs Vital signs: Vital Signs Temp 97.6 F 05/26/19 03:44 Pulse 66 05/26/19 03:45 Resp 18 05/26/19 03:45 BP 144/73 05/26/19 03:44 Pulse Ox 98 05/26/19 03:44 Intake & Output 05/25/19 05/26/19 05/26/19 18:59 06:59 18:59 Intake Total 780 160 240 Output Total 900 200 200 Balance -120 -40 40 Weight 70.7 kg Intake: IV 160 0.9 160 Intake, IV Titration 180 Amount IV Fluid Continuation 1, 80 000 ml @ 0 mls/hr IV .STK [facility] Rx#:[id number] Piperacillin-Tazobactam 3 100 .375 gm In Sodium Chloride 0.9% 100 ml @ 25 mls/hr IVPB Q8H [facility] Rx#: [id number] Oral 600 240 Output: Urine 900 200 200 Other: Voiding Method Urinal Urinal # Voids 1 1 # Bowel Movements 0 - Exam Multiphasic signal DP on the left lower extremity with palpable pulse at the bypass. Foot is warm. 1+ pitting edema of the left lower extremity. dressings are intact. Mild blisters noted at the incision - Constitutional General appearance: Present: average body habitus, cooperative - EENT Eyes: Present: PERRLA - Respiratory Respiratory: bilateral: CTA - Cardiovascular Rhythm: regular - Psychiatric Psychiatric: Present: A&O x's 3, appropriate affect, intact judgment & insight - Labs CBC & Chem 7: 05/25/19 06:44 05/24/19 05:50 Assessment and Plan Assessment: #1 POD 4 left femoral tibial artery bypass with insitu vein graft secondary #2 gangrene left second toe status post amputation with cellulitis of left lower extremity #3 left lower extremity critical limb ischemia Natalie classification 5 #4 tobacco abuse with recent cessation- 2 weeks #5 newly diagnosed type 2 diabetes #6 regular alcohol use #7 daily marijuana use Plan: Continue pain control. Continue medications - oral anticoagulation with Xarelto, statin and aspirin. Increase activity, ambulate with assistance. PT to evaluate. Patient is stable from a vascular standpoint. Okay to work on discharge planning which he may need therapy upon discharge.
--- NOTE | 2019-05-26 15:22 | P.PN ---
Subjective Progress Note Date: 05/26/19 Principal diagnosis: This is a 63-year-old male that was admitted for a left foot second toe amputation with cellulitis to the site. Patient was not in the room as he was being taken down for an angiogram with possible intervention with Dr. Lott today. Will continue to monitor closely and await for angiogram report. 05/20/19 Patient is sitting in bed in no apparent distress awaiting to go down for vein mapping per Dr. Lott as he will most likely need [id number]-[id number] artery below the knee bypass that is tentatively scheduled for Saturday. Patient denies any shortness of breath, chest pain, or palpitations patient does have some pain in the left foot. Patient denies any nausea or vomiting and is afebrile. Patient is currently still on IV antibiotics of Zosyn. Will continue to monitor. 05/21/2019 Patient is sitting up at the site of the bed with his left leg elevated as he just returned from the bathroom. Patient appears in no acute distress. Patient states that he is walking fine but is trying not to walk as much on the left foot due to the pain and because he doesn't want to further injure the foot. Patient denies any chest pain, shortness of breath, or palpitations at this time patient remains afebrile. Patient is anticipating a fem-pop bypass in the morning with vascular surgery. Patient is having some tenderness of the left great toe and also the fourth and fifth digit of the left foot. Dressing is intact and dry on the left upper foot. Patient is still on IV antibiotics of Zosyn. Infectious disease is following. Arterial Doppler study yesterday shows moderate right femoral popliteal disease. Moderate to severe left femoral- popliteal disease with suspected left iliac component. Vascular surgery is following. Guarded prognosis 05/22/2019 Patient is sitting up in bed currently reading the Bible. Patient appears to be in no acute distress. Patient states that he is awaiting his bypass procedure with vascular surgery and was told it would be sometime this morning and early afternoon. Patient is currently nothing by mouth for the procedure. Patient states that he is feeling a little anxious about the procedure as he wants it to work and everything to heal properly. Patient denies any shortness of breath, chest pain, or palpitations at this time. Patient is afebrile. Patient states that the will be coming in soon. Prognosis is guarded. Will continue to monitor. 05/25/2019 Patient is sitting up in the recliner in no acute distress. Patient states that he still having some pain in his left foot. Patient had a large bowel movement today and feels much better as he hadn't had one in for 5 days. Patient denies any nausea, vomiting, or diarrhea at this time. Patient remains afebrile. Patient denies any chest pain, shortness of breath, palpitations at this time. Patient states that Dr. Rodriguez stated he could go home from their standpoint and follow-up in the clinic this week. Patient is concerned about how he is going to pay for his medications upon discharge. Case management is aware and is working with him. Patient does not want to go to inpatient rehab at this time and would like to do so in an outpatient basis. Pain management is being changed to oral today and will continue to monitor closely. We'll continue to monitor vital signs and labs closely. Patient is looking forward to going home. Patient had a steady gait to the bathroom and was not using a walker. patient was reminded to use the walker for assistance and also to not place a lot of pressure on that left foot. 05/26/2019 Patient is sitting up in bed in no acute distress. Patient states that he had some anxiety earlier this morning relating to discontinuing the Dilaudid failure was getting every 3 hours. Patient states they gave him some Xanax which helped the anxiety. Patient is currently getting Ultram for pain and states that his pain is controlled. Patient is awaiting for authorization from his insurance for IV antibiotic therapy to be continued outpatient. Spoke with case management today and they did not get authorization for IV antibiotics so the new plan is to work with the [facility] for approval of IV antibiotic therapy outpatient as the patient does not want to go to rehab inpatient at this time. Patient is aware of the treatment plan and agrees with the plan. Patient denies any shortness of breath, chest pain, or palpitations at this time. Patient is afebrile. Patient denies any nausea or vomiting. Patient is walking with a walker to the bathroom with a steady gait. We will continue to monitor closely. The dressing to the left foot and leg are dry and intact. Positive pulses noted of the left foot. The left foot is warm to touch. There is some mild swelling of the left lower extremity in the patient is elevating the leg pillow at this time. Objective - Vital Signs Vital signs: Vital Signs Temp 96.1 F L 05/26/19 07:00 Pulse 61 05/26/19 07:00 Resp 16 05/26/19 14:58 BP 144/64 05/26/19 07:00 Pulse Ox 98 05/26/19 07:00 Intake & Output 05/25/19 05/26/19 05/26/19 18:59 06:59 18:59 Intake Total 780 160 480 Output Total 900 200 500 Balance -120 -40 -20 Weight 70.7 kg Intake: IV 160 0.9 160 Intake, IV Titration 180 Amount IV Fluid Continuation 1, 80 000 ml @ 0 mls/hr IV .[facility] Rx#:[id number] Piperacillin-Tazobactam 3 100 .375 gm In Sodium Chloride 0.9% 100 ml @ 25 mls/hr IVPB Q8H [facility] Rx#: [id number] Oral 600 480 Output: Urine 900 200 500 Other: Voiding Method Urinal Urinal Urinal # Voids 1 1 # Bowel Movements 0 - Exam Gen: This is a 63-year-old male sitting up in the bed in no acute distress. HEENT: Head is atraumatic, normocephalic. Pupils equal, round. Sclerae is anicteric. NECK: Supple. No JVD. No lymphadenopathy. No thyromegaly. LUNGS: Clear to auscultation. No wheezes or rhonchi. No intercostal retractions. HEART: Regular rate and rhythm. No murmur. ABDOMEN: Soft. Bowel sounds are present. No masses. No tenderness. EXTREMITIES: No pedal edema. No calf tenderness. Left foot dressing is dry and intact. Mild left leg swelling noted. Positive pedal pulses of the left foot and the foot is warm. NEUROLOGICAL: Patient is awake, alert and oriented x3. Cranial nerves 2 through 12 are grossly intact. Gait is steady - Labs CBC & Chem 7: 05/25/19 06:44 05/24/19 05:50 Assessment and Plan Assessment: Cellulitis and infection of the left foot status post amputation of the left second toe. Patient will continue on ceftriaxone. Patient will be going home with IV ceftriaxone in the outpatient setting. Infectious disease is following. A midline was placed and awaiting authorization for antibiotics for outpatient setting. Awaiting [facility] approval for IV antibiotic therapy coverage peripheral vascular disease: Patient underwent femoral to popliteal artery below the knee bypass of the left leg Diabetes mellitus: Hemoglobin A1c is 6.1 Hypertension: Resuming lisinopril Nicotine abuse: Recently quit smoking 2 weeks ago DVT prophylaxis with heparin subq GI prophylaxis with Pepcid Recommendations and discussion: Continue current medications and symptomatic management. Will continue to monitor closely. Continue IV antibiotics. Will continue to monitor labs and vital signs closely. Prognosis is guarded. Further recommendations to follow. Probable discharge in 24-48 hours as we are waiting an [facility] from the [facility] for outpatient IV antibiotic therapy. Patient was written for Xarelto 2.5mg from vascular surgery but his insurance doesn't cover this. Spoke to Dr. Rodriguez and is okay with switching to Eliquis 5mg twice a day.
[2019-05-26] MEDS: APIXABAN 5 MG TAB PO SCH (20:10)
[2019-05-27] MEDS: ALPRAZolam 0.5 MG TAB PO PRN (05:49)
[2019-05-27] MEDS: KETOROLAC 30 MG/ML 1 ML VIAL IVP SCH ×3 (05:50→17:15)
[2019-05-27] MEDS: SENNOSIDES 8.6 MG TAB PO SCH (08:52)
[2019-05-27] MEDS: APIXABAN 5 MG TAB PO SCH ×2 (08:53→21:08)
[2019-05-27] MEDS: LISINOPRIL 20 MG TAB PO SCH (08:53)
[2019-05-27] MEDS: traMADol 50 MG TAB PO SCH ×3 (08:53→21:15)
[2019-05-27] MEDS: FAMOTIDINE 20 MG TAB PO SCH ×2 (08:54→21:08)
--- NOTE | 2019-05-27 09:28 | P.VSCSTY ---
Greater Saphenous Vein Mapping This is bilateral lower extremity greater saphenous vein mapping. Date of service: 05/20/2019 Vein quality and ultrasound appearance: We see no endoluminal thrombus. There is some wall thickening.. Vein size groin right : 4.5 x 4.2 groin left: 7.1 x 5.9 High thigh right: 3.6 x 2.8 high thigh left: 3.7 x 3.4 Mid thigh right: 4.2 x 3.4 mid thigh left: 4.8 x 3.7 Above-knee right: 4.6 x 3.2 above- knee left: 4.3 x 3.9 Below knee right: 3.0 x 2.5 below-knee left: 4.1 x 3.0 Mid calf right: 2.7 x 2.2 mid calf left: 4.0 x 2.7 Ankle right: 4.5 x 2.9 ankle left: 3.8 x 2.8 Impression: Usable bilateral greater saphenous vein.
--- NOTE | 2019-05-27 13:25 | P.PN ---
Subjective Progress Note Date: 05/27/19 Principal diagnosis: This is a 63-year-old male that was admitted for a left foot second toe amputation with cellulitis to the site. Patient was not in the room as he was being taken down for an angiogram with possible intervention with Dr. Lott today. Will continue to monitor closely and await for angiogram report. 05/20/19 Patient is sitting in bed in no apparent distress awaiting to go down for vein mapping per Dr. Lott as he will most likely need [id number]-vc-frhemkojr artery below the knee bypass that is tentatively scheduled for Saturday. Patient denies any shortness of breath, chest pain, or palpitations patient does have some pain in the left foot. Patient denies any nausea or vomiting and is afebrile. Patient is currently still on IV antibiotics of Zosyn. Will continue to monitor. 05/21/2019 Patient is sitting up at the site of the bed with his left leg elevated as he just returned from the bathroom. Patient appears in no acute distress. Patient states that he is walking fine but is trying not to walk as much on the left foot due to the pain and because he doesn't want to further injure the foot. Patient denies any chest pain, shortness of breath, or palpitations at this time patient remains afebrile. Patient is anticipating a fem-pop bypass in the morning with vascular surgery. Patient is having some tenderness of the left great toe and also the fourth and fifth digit of the left foot. Dressing is intact and dry on the left upper foot. Patient is still on IV antibiotics of Zosyn. Infectious disease is following. Arterial Doppler study yesterday shows moderate right femoral popliteal disease. Moderate to severe left femoral- popliteal disease with suspected left iliac component. Vascular surgery is following. Guarded prognosis 05/22/2019 Patient is sitting up in bed currently reading the Bible. Patient appears to be in no acute distress. Patient states that he is awaiting his bypass procedure with vascular surgery and was told it would be sometime this morning and early afternoon. Patient is currently nothing by mouth for the procedure. Patient states that he is feeling a little anxious about the procedure as he wants it to work and everything to heal properly. Patient denies any shortness of breath, chest pain, or palpitations at this time. Patient is afebrile. Patient states that the will be coming in soon. Prognosis is guarded. Will continue to monitor. 05/25/2019 Patient is sitting up in the recliner in no acute distress. Patient states that he still having some pain in his left foot. Patient had a large bowel movement today and feels much better as he hadn't had one in for 5 days. Patient denies any nausea, vomiting, or diarrhea at this time. Patient remains afebrile. Patient denies any chest pain, shortness of breath, palpitations at this time. Patient states that Dr. Rodriguez stated he could go home from their standpoint and follow-up in the clinic this week. Patient is concerned about how he is going to pay for his medications upon discharge. Case management is aware and is working with him. Patient does not want to go to inpatient rehab at this time and would like to do so in an outpatient basis. Pain management is being changed to oral today and will continue to monitor closely. We'll continue to monitor vital signs and labs closely. Patient is looking forward to going home. Patient had a steady gait to the bathroom and was not using a walker. patient was reminded to use the walker for assistance and also to not place a lot of pressure on that left foot. 05/26/2019 Patient is sitting up in bed in no acute distress. Patient states that he had some anxiety earlier this morning relating to discontinuing the Dilaudid failure was getting every 3 hours. Patient states they gave him some Xanax which helped the anxiety. Patient is currently getting Ultram for pain and states that his pain is controlled. Patient is awaiting for authorization from his insurance for IV antibiotic therapy to be continued outpatient. Spoke with case management today and they did not get authorization for IV antibiotics so the new plan is to work with the [facility] for approval of IV antibiotic therapy outpatient as the patient does not want to go to rehab inpatient at this time. Patient is aware of the treatment plan and agrees with the plan. Patient denies any shortness of breath, chest pain, or palpitations at this time. Patient is afebrile. Patient denies any nausea or vomiting. Patient is walking with a walker to the bathroom with a steady gait. We will continue to monitor closely. The dressing to the left foot and leg are dry and intact. Positive pulses noted of the left foot. The left foot is warm to touch. There is some mild swelling of the left lower extremity in the patient is elevating the leg pillow at this time. 05/27/2019 Patient is sitting up in bed in no acute distress. Patient states that his pain is being controlled with the Ultram at this time. Patient is still experiencing some anxiety as he is hoping to go home but still awaiting for [place] authorization for IV antibiotics by outpatient. Patient is also concerned with pain for medications and not being able to afford his bills. [facility] the [facility] getting [facility]. Patient denies any shortness of breath, chest pain, or palpitations at this time. Patient remains afebrile. Patient is still currently on IV antibiotics. Patient denies any nausea or vomiting. Patient is getting up and walking to the bathroom with a walker with a steady gait. His prescription for eliquis was faxed to the pharmacy and will be receiving 1 month free. Patient is to attend and anticoagulation class at which time his medications will be covered through the [facility]. Dressings are dry and intact of the left foot as well as positive pulses notice in the left foot. The left foot is still warm to touch with some mild swelling of the left lower extremity that has improved. Willl continue to monitor closely Objective - Vital Signs Vital signs: Vital Signs Temp 98 F 05/27/19 07:00 Pulse 74 05/27/19 07:00 Resp 16 05/27/19 08:00 BP 175/82 05/27/19 07:00 Pulse Ox 98 05/27/19 07:00 Intake & Output 05/26/19 05/27/19 05/27/19 18:59 06:59 18:59 Intake Total 480 320 240 Output Total 500 300 Balance -20 20 240 Weight 70.8 kg Intake: IV 320 0.9 320 Oral 480 240 Output: Urine 500 300 Other: Voiding Method Urinal Urinal Urinal # Voids 0 1 # Bowel Movements 0 - Exam Gen: This is a 63-year-old male sitting up in the bed in no acute distress. Blood pressure is 175/82, pulse is 74, respirations are 16 and nonlabored, temp is 98F, oxygen saturation is 98% on room air HEENT: Head is atraumatic, normocephalic. Pupils equal, round. Sclerae is anicteric. NECK: Supple. No JVD. No lymphadenopathy. No thyromegaly. LUNGS: Clear to auscultation. No wheezes or rhonchi. No intercostal retractions. HEART: Regular rate and rhythm. No murmur. ABDOMEN: Soft. Bowel sounds are present. No masses. No tenderness. EXTREMITIES: No pedal edema. No calf tenderness. Left foot dressing is dry and intact. Mild left leg swelling to the lower extremity shows slight improvement. Positive pedal pulses of the left foot and the foot is warm. NEUROLOGICAL: Patient is awake, alert and oriented x3. Cranial nerves 2 through 12 are grossly intact. Gait is steady - Labs CBC & Chem 7: 05/25/19 06:44 05/24/19 05:50 Assessment and Plan Assessment: Cellulitis and infection of the left foot status post amputation of the left second toe. Patient will continue on ceftriaxone. Patient will be going home with IV ceftriaxone in the outpatient setting. Infectious disease is following. A midline was placed and awaiting authorization for antibiotics for outpatient setting. Awaiting [place] approval for IV antibiotic therapy coverage. Patient is still awaiting for [facility] approval at this time. Case management is working on the case. peripheral vascular disease: Patient underwent femoral to popliteal artery below the knee bypass of the left leg Diabetes mellitus: Hemoglobin A1c is 6.1 Hypertension: Resuming lisinopril Nicotine abuse: Recently quit smoking 2 weeks ago DVT prophylaxis with heparin subq GI prophylaxis with Pepcid Recommendations and discussion: Continue current medications and symptomatic management. Will continue to monitor closely. Continue IV antibiotics. Will continue to monitor labs and vital signs closely. Prognosis is guarded. Further recommendations to follow. Probable discharge in 24-48 hours as we are waiting an [facility] the [facility] for outpatient IV antibiotic therapy.
[2019-05-27 20:57] LABS: Glucose,Whole Blood 87 mg/dL (75-99)
[2019-05-28] MEDS: KETOROLAC 30 MG/ML 1 ML VIAL IVP SCH ×3 (00:19→13:03)
[2019-05-28] MEDS: ALPRAZolam 0.5 MG TAB PO PRN ×2 (00:22→21:03)
[2019-05-28 07:26] LABS: Glucose,Whole Blood 94 mg/dL (75-99)
[2019-05-28] MEDS: APIXABAN 5 MG TAB PO SCH ×2 (09:42→21:05)
[2019-05-28] MEDS: traMADol 50 MG TAB PO SCH ×3 (09:43→21:03)
[2019-05-28] MEDS: SENNOSIDES 8.6 MG TAB PO SCH (09:43)
[2019-05-28] MEDS: FAMOTIDINE 20 MG TAB PO SCH ×2 (09:43→21:05)
[2019-05-28] MEDS: LISINOPRIL 20 MG TAB PO SCH (09:43)
--- NOTE | 2019-05-28 10:00 | P.PN ---
Subjective Progress Note Date: 05/28/19 Doing well overal. Pain controlled. NAD No resp distress abd soft, NT/ND BLE warm. palp pulse in graft. mild LLE edema as expected. Necrosis at the edges of the second toe amputation site, some areas of dry gangrene between fourth and fifth toe. No surrounding continued cellulitis POD#6 L fem-pop bypass with in situ vein PAD L 2nd toe gangrene s/p amputation Continue local wound care, follow with outpatient wound care upon DC. Increase activity as tolerated. Okay for DC from vascular surg standpoint. Anticoagulation for graft patency, PAD. F/U in 2 weeks in office. Objective - Vital Signs Vital signs: Vital Signs Temp 97.7 F 05/28/19 05:00 Pulse 64 05/28/19 05:00 Resp 20 05/28/19 05:00 BP 157/81 05/28/19 05:00 Pulse Ox 99 05/28/19 05:00 Intake & Output 05/27/19 05/28/19 05/28/19 18:59 06:59 18:59 Intake Total 1000 300 Balance 1000 300 Intake: IV 160 0.9 160 Oral 840 300 Other: Voiding Method Urinal Urinal # Voids 2 - Labs CBC & Chem 7: 05/25/19 06:44 05/24/19 05:50
--- NOTE | 2019-05-28 13:03 | P.PN ---
Subjective Progress Note Date: 05/28/19 Principal diagnosis: This is a 63-year-old male that was admitted for a left foot second toe amputation with cellulitis to the site. Patient was not in the room as he was being taken down for an angiogram with possible intervention with Dr. Lott today. Will continue to monitor closely and await for angiogram report. 05/20/19 Patient is sitting in bed in no apparent distress awaiting to go down for vein mapping per Dr. Lott as he will most likely need [id number] artery below the knee bypass that is tentatively scheduled for Saturday. Patient denies any shortness of breath, chest pain, or palpitations patient does have some pain in the left foot. Patient denies any nausea or vomiting and is afebrile. Patient is currently still on IV antibiotics of Zosyn. Will continue to monitor. 05/21/2019 Patient is sitting up at the site of the bed with his left leg elevated as he just returned from the bathroom. Patient appears in no acute distress. Patient states that he is walking fine but is trying not to walk as much on the left foot due to the pain and because he doesn't want to further injure the foot. Patient denies any chest pain, shortness of breath, or palpitations at this time patient remains afebrile. Patient is anticipating a fem-pop bypass in the morning with vascular surgery. Patient is having some tenderness of the left great toe and also the fourth and fifth digit of the left foot. Dressing is intact and dry on the left upper foot. Patient is still on IV antibiotics of Zosyn. Infectious disease is following. Arterial Doppler study yesterday shows moderate right femoral popliteal disease. Moderate to severe left femoral- popliteal disease with suspected left iliac component. Vascular surgery is following. Guarded prognosis 05/22/2019 Patient is sitting up in bed currently reading the Bible. Patient appears to be in no acute distress. Patient states that he is awaiting his bypass procedure with vascular surgery and was told it would be sometime this morning and early afternoon. Patient is currently nothing by mouth for the procedure. Patient states that he is feeling a little anxious about the procedure as he wants it to work and everything to heal properly. Patient denies any shortness of breath, chest pain, or palpitations at this time. Patient is afebrile. Patient states that the will be coming in soon. Prognosis is guarded. Will continue to monitor. 05/25/2019 Patient is sitting up in the recliner in no acute distress. Patient states that he still having some pain in his left foot. Patient had a large bowel movement today and feels much better as he hadn't had one in for 5 days. Patient denies any nausea, vomiting, or diarrhea at this time. Patient remains afebrile. Patient denies any chest pain, shortness of breath, palpitations at this time. Patient states that Dr. Rodriguez stated he could go home from their standpoint and follow-up in the clinic this week. Patient is concerned about how he is going to pay for his medications upon discharge. Case management is aware and is working with him. Patient does not want to go to inpatient rehab at this time and would like to do so in an outpatient basis. Pain management is being changed to oral today and will continue to monitor closely. We'll continue to monitor vital signs and labs closely. Patient is looking forward to going home. Patient had a steady gait to the bathroom and was not using a walker. patient was reminded to use the walker for assistance and also to not place a lot of pressure on that left foot. 05/26/2019 Patient is sitting up in bed in no acute distress. Patient states that he had some anxiety earlier this morning relating to discontinuing the Dilaudid failure was getting every 3 hours. Patient states they gave him some Xanax which helped the anxiety. Patient is currently getting Ultram for pain and states that his pain is controlled. Patient is awaiting for authorization from his insurance for IV antibiotic therapy to be continued outpatient. Spoke with case management today and they did not get authorization for IV antibiotics so the new plan is to work with the [facility] for approval of IV antibiotic therapy outpatient as the patient does not want to go to rehab inpatient at this time. Patient is aware of the treatment plan and agrees with the plan. Patient denies any shortness of breath, chest pain, or palpitations at this time. Patient is afebrile. Patient denies any nausea or vomiting. Patient is walking with a walker to the bathroom with a steady gait. We will continue to monitor closely. The dressing to the left foot and leg are dry and intact. Positive pulses noted of the left foot. The left foot is warm to touch. There is some mild swelling of the left lower extremity in the patient is elevating the leg pillow at this time. 05/27/2019 Patient is sitting up in bed in no acute distress. Patient states that his pain is being controlled with the Ultram at this time. Patient is still experiencing some anxiety as he is hoping to go home but still awaiting for [place] for IV antibiotics by outpatient. Patient is also concerned with pain for medications and not being able to afford his bills. [facility]. Patient denies any shortness of breath, chest pain, or palpitations at this time. Patient remains afebrile. Patient is still currently on IV antibiotics. Patient denies any nausea or vomiting. Patient is getting up and walking to the bathroom with a walker with a steady gait. His prescription for eliquis was faxed to the pharmacy and will be receiving 1 month free. Patient is to attend and anticoagulation class at which time his medications will be covered through the [facility]. Dressings are dry and intact of the left foot as well as positive pulses notice in the left foot. The left foot is still warm to touch with some mild swelling of the left lower extremity that has improved. Willl continue to monitor closely 05/28/2019 Patient is sitting up in the bed in no acute distress. Patient states that his pain is manageable and being controlled at this time. Patient is still awaiting for [place] for the [place] for [place] antibiotic therapy. Rehab was discussed at length with the patient today at the bedside as he would be able to go possibly today if accepted. Patient is still slightly hesitated to go inpatient rehab as he states his does not want him to go. Patient is awaiting for a call back from his to discuss possibly going to [facility] which is close to his home. Case management is aware and following up with him this afternoon. Patient denies any chest pain, shortness of breath, or palpitations at this time. Patient tolerating diet well with no nausea, vomiting, or diarrhea. Patient's left lower extremity is warm and dry and his fem-pop bypass incision is open to air. There is a mild amount of left lower extremity swelling with no redness noted. The surgical incision is clean dry and intact with some scabbing noted. Patient is currently on Eliquis for anti-Coagulation per vascular surgery recommendations. The left foot dressing is dry and intact with positive pulses noted. We will continue to monitor closely. Objective - Vital Signs Vital signs: Vital Signs Temp 97.7 F 05/28/19 05:00 Pulse 64 05/28/19 05:00 Resp 20 05/28/19 05:00 BP 157/81 05/28/19 05:00 Pulse Ox 99 05/28/19 05:00 Intake & Output 05/27/19 05/28/19 05/28/19 18:59 06:59 18:59 Intake Total 1000 300 Balance 1000 300 Weight 70.8 kg Intake: IV 160 0.9 160 Oral 840 300 Other: Voiding Method Urinal Urinal # Voids 2 - Exam Gen: This is a 63-year-old male sitting up in the bed in no acute distress. Blood pressure is 157/81, pulse is 64, respirations are 20 and non-labored, temp is 97.7F, oxygen saturation is 99% on room air HEENT: Head is atraumatic, normocephalic. Pupils equal, round. Sclerae is anicteric. NECK: Supple. No JVD. No lymphadenopathy. No thyromegaly. LUNGS: Clear to auscultation. No wheezes or rhonchi. No intercostal retractions. HEART: Regular rate and rhythm. No murmur. ABDOMEN: Soft. Bowel sounds are present. No masses. No tenderness. EXTREMITIES: No pedal edema. No calf tenderness. Left foot dressing is dry and intact. Mild left leg swelling to the lower extremity shows slight improvement. Positive pedal pulses of the left foot and the foot is warm. Fem-pop bypass incision is dry with some scabbing noted. No redness or drainage from the site. NEUROLOGICAL: Patient is awake, alert and oriented x3. Cranial nerves 2 through 12 are grossly intact. Gait is steady - Labs CBC & Chem 7: 05/25/19 06:44 05/24/19 05:50 Assessment and Plan Assessment: Cellulitis and infection of the left foot status post amputation of the left second toe. Patient will continue on ceftriaxone. Patient will be going home with IV ceftriaxone in the outpatient setting. Infectious disease is following. A midline was placed and awaiting authorization for antibiotics for outpatient setting. [place]ing [place] antibiotic therapy [place]. Patient is still awaiting for [facility] approval at this time. Case management is working on the case. peripheral vascular disease: Patient underwent femoral to popliteal artery below the knee bypass of the left leg Diabetes mellitus: Hemoglobin A1c is 6.1 Hypertension: Resuming lisinopril Nicotine abuse: Recently quit smoking 2 weeks ago DVT prophylaxis with heparin subq GI prophylaxis with Pepcid Recommendations and discussion: Continue current medications and symptomatic management. Will continue to monitor closely. Continue IV antibiotics. Will continue to monitor labs and vital signs closely. Prognosis is guarded. Further recommendations to follow. Probable discharge in 24-48 hours as we are waiting an approval from the [place] for outpatient IV antibiotic therapy.
[2019-05-28 13:07] LABS: Glucose,Whole Blood 112 mg/dL (75-99)
--- NOTE | 2019-05-28 15:33 | P.DS ---
Providers Date of admission: 05/15/19 04:02 Expected date of discharge: 05/28/19 Attending physician: Noris De La Rosa Consults: 05/15/19 04:06 Consult Physician Routine Consulting Provider: Jose Matos Consult Reason/Comments: Gangrene left foot; cellulitis left foot Do you want consulting provider notified?: Yes Consult Physician Routine Consulting Provider: Jose Guadalupe Tapia Consult Reason/Comments: Left foot wounds; Arterial occlusion Do you want consulting provider notified?: Already Contacted Primary care physician: [facility] Hospital Course: Final diagnosis Cellulitis and infection of the left foot status post amputation of left second toe Peripheral vascular disease Femoral-popliteal artery below the knee bypass of the left leg Diabetes mellitus: Hemoglobin A1c is 6.1 Nicotine abuse Discharge disposition Patient will be discharged home in a stable condition with guarded prognosis. Patient will be followed with home care for IV antibiotics per infectious disease. Patient will follow up with wound clinic and vascular surgery clinic as scheduled. History of present illness This is a 63-year-old male who was admitted for left foot second toe amputation with cellulitis to the surrounding tissue and gangrene involvement. Patient underwent a fem-pop bypass to the left lower extremity with vascular surgery during admission. Vascular surgery was following closely along with infectious disease. Patient is in acute distress at this time. Patient denies any chest pain, shortness of breath, or palpitations at this time. Patient has been recei ving IV antibiotics throughout the hospital course and did receive a midline and will be receiving IV ceftriaxone and outpatient setting. Patient denies any vomiting, nausea, or diarrhea at this time. Patient states that his pain is controlled on his left foot at this time. Patient also received a glucometer as he was not diabetic in the past that he knew of. His hemoglobin A1c is 6.1. Patient was refusing inpatient rehab and will be going home with home care services to administer the IV antibiotics. Patient is currently stable with much improvement. Patient will be discharged home with a guarded prognosis. On exam vital signs are stable. Cardio S1 and S2 are normal. Respiratory system is clear to auscultation. Abdomen is soft and non-distended. Nervous system shows no focal deficits and gait is steady. Patient has been using a walker to help keep some of the weight off of the left foot. Please refer to medication reconciliation sheet for list of medications. Patient Condition at Discharge: Serious Plan - Discharge Summary New Discharge Prescriptions: New cefTRIAXone [Rocephin] 2,000 mg IVPB Q24HR #14 vial Apixaban [Eliquis] 5 mg PO BID #60 tab traMADol HCl [Ultram] 50 mg PO TID PRN #12 tab PRN Reason: Pain Continue Lisinopril 20 mg PO PC-LUNCH Discharge Medication List Lisinopril 20 mg PO PC-LUNCH 05/15/19 [History] cefTRIAXone [Rocephin] 2,000 mg IVPB Q24HR #14 vial 05/25/19 [Rx] Apixaban [Eliquis] 5 mg PO BID #60 tab 05/26/19 [Rx] traMADol HCl [Ultram] 50 mg PO TID PRN #12 tab 05/28/19 [Rx] Follow up Appointment(s)/Referral(s): Rdudy Torres MD [REFERRING] - 1 Week Jose Matos MD [STAFF PHYSICIAN] - 06/10/19 10:45 am (Saturday) Zac Lott DO [STAFF PHYSICIAN] - 06/08/19 9:45 am (Saturday with Dr. Rodriguez) [facility], [REFERRING] - [facility],Clinic [Primary Care Provider] - 1-2 days (Unable to get through. Please call to schedule this appointment) Ambulatory/Diagnostic Orders: Basic Metabolic Panel [LAB.AMB] Location: None Selected C Reactive Protein [LAB.AMB] Location: None Selected Complete Blood Count w/diff [LAB.AMB] Location: None Selected Erythrocyte Sedimentation Rate [LAB.AMB] Location: None Selected Patient Instructions/Handouts: How to Stop Smoking (DC), Femoropopliteal Bypass (DC), Safe Use of Anticoagulants (DC) Activity/Diet/Wound Care/Special Instructions: [facility] will supply the IV antibiotics, delivery will be 05/29/19. [phone] Activity limited until follow-up. May advance as tolerated. continue heart healthy, diabetic diet. continue to monitor blood sugars Follow up with primary care provider this week. Follow up with the wound clinic as scheduled follow up with vascular surgery clinic as scheduled. Discharge Disposition: HOME WITH HOME HEALTH SERVICES
[2019-05-28 17:23] LABS: Glucose,Whole Blood 96 mg/dL (75-99)
[2019-05-28 21:24] LABS: Glucose,Whole Blood 106 mg/dL (75-99)
[2019-05-28 23:25] VITALS: PULSE 79
[2019-05-29 06:38] VITALS: BP 162/82; RESP 16; TEMP 97.8
[2019-05-29 07:41] LABS: Glucose,Whole Blood 96 mg/dL (75-99)
[2019-05-29] MEDS: APIXABAN 5 MG TAB PO SCH (08:11)
[2019-05-29] MEDS: SENNOSIDES 8.6 MG TAB PO SCH (08:11)
[2019-05-29] MEDS: traMADol 50 MG TAB PO SCH (08:11)
[2019-05-29] MEDS: LISINOPRIL 20 MG TAB PO SCH (08:11)
[2019-05-29] MEDS: FAMOTIDINE 20 MG TAB PO SCH (08:11)
[2019-05-29 12:08] LABS: Glucose,Whole Blood 88 mg/dL (75-99)
--- NOTE | 2019-06-01 15:41 | CDI ---
Documentation Clarification Form Date: 06/01/19 From: CESAR Roman Phone: If you have question, contact China Rodriguez at [phone] M-F 8:30 am to 6pm Admit Date: 05/15/2019 4:02:00 AM Patient Name: Mason Hernandez Visit Number: [id number] Discharge Date: 05/29/2019 1:00:00 PM ATTENTION: The Clinical Documentation Specialists (CDI) and [facility] Coding Staff appreciate your assistance in clarifying documentation. Please respond to the clarification below the line at the bottom and electronically sign. The CDI & [facility] Coding staff will review the response and follow-up if needed. Please note: Queries are made part of the Legal Health Record. If you have any questions, please contact the author of this message via ITS. Dr. Noris De La Rosa Mr. Hernandez was admitted 2 days status post amputation of the second toe with cellulitis to the surrounding tissue and gangrene involvement. He left previous hospital AMA. Patient has a history of PVD and a recent diagnosis of diabetes mellitus. Skin examination of wound on admission: Patient had amputated second right toe, surgical site area appears to be red, erythematous, tender to touch. Patient is started on Zosyn and vancomycin and received a midline catheter prior to discharge to be maintained on antibiotics in the outpatient setting. Progress note 05/16 states amputation site intact with minimal area of necrosis of the edges. Progress note from 05/27 admitted for a left foot second toe amputation with cellulitis to the site. Progress note from 05/28 Cellulitis and infection of the left foot status post amputation of the left second toe. Aortogram with bilateral lower extremity runoff as well as a femoral popliteal bypass was performed during this admission. In order to accurately reflect this patients severity of illness, please clarify the cause of this patients cellulitis: Cellulitis is due to postoperative infection at amputation site Cellulitis is due to diabetes mellitus Cellulitis is due to PVD and gangrene Other, please specify ____ Unable to determine Cellulitis is due to PVD and gangrene MTDD
== END 2019-05-29 13:00 | disposition home health service (06) | DRG 253 ==
LOC: EC 01:10 → 4MS4W 04:02 → 3SCARD 05-19 12:19 → 4MS4W 05-27 20:16
PROVIDERS: ADMIT Hospitalist; ATTEND Hospitalist
PROC: B41D1ZZ Fluoroscopy of Aorta and Bilateral Lower Extremity Arteries using Low Osmolar Contrast (ICD-10-PCS; 2019-05-19 11:17)
PROC: 06BQ0ZZ Excision of Left Saphenous Vein, Open Approach (ICD-10-PCS; 2019-05-22)
PROC: 041L09L Bypass Left Femoral Artery to Popliteal Artery with Autologous Venous Tissue, Open Approach (ICD-10-PCS; principal; 2019-05-22 08:15)
PROC: 05HD33Z Insertion of Infusion Device into Right Cephalic Vein, Percutaneous Approach (ICD-10-PCS; 2019-05-25)
DX: E11.52 Type 2 diabetes mellitus with diabetic peripheral angiopathy with gangrene (principal); L03.116 Cellulitis of left lower limb; I96 Gangrene, not elsewhere classified; F10.10 Alcohol abuse, uncomplicated; B95.61 Methicillin susceptible Staphylococcus aureus infection as the cause of diseases classified elsewhere; F41.9 Anxiety disorder, unspecified; I10 Essential (primary) hypertension; L40.9 Psoriasis, unspecified; Z79.899 Other long term (current) drug therapy; Z88.5 Allergy status to narcotic agent; Z87.891 Personal history of nicotine dependence; Z71.6 Tobacco abuse counseling; Z89.422 Acquired absence of other left toe(s)
CPT/HCPCS: 36200; 36410; 36415; 75625; 75716; 76937; 80048; 80053; 80202; 82565; 83036; 83605; 85025; 85027; 86850; 86900; 86901; 87040; 87070; 87077; 87186; 87205; 93923; 93970; 96361; 96365; 96366; 96367; 96375; 96376; 99284

== ENCOUNTER 2019-06-01 22:56 | Emergency (ER) | payer MEDICARE, OTHER ==
[2019-06-01 23:16] VITALS: RESP 18
[2019-06-02] MEDS ORDERED: SODIUM CHLORIDE 0.9% 1,000 ML IV STA (01:56)
[2019-06-02] MEDS ORDERED: MORPHINE SULFATE 4 MG/ML SYRINGE IV STA (01:56)
[2019-06-02 03:00] LABS: HGB 14.7 gm/dL (13.0-17.5); MCH 30.7 pg (25.0-35.0); MCHC 33.4 g/dL (31.0-37.0); Mean Platelet Volume 7.5; Platelet Count 281 k/uL (150-450); RBC 4.79 m/uL (4.30-5.90); RDW 15.1 % (11.5-15.5); WBC 8.6 k/uL (3.8-10.6)
--- NOTE | 2019-06-02 03:06 | US ---
EXAM: US Duplex Left Lower Extremity Veins CLINICAL HISTORY: ITS.REASON US Reason: Pain TECHNIQUE: Real-time duplex ultrasound scan of the left lower extremity veins integrating B-mode two-dimensional vascular structure, Doppler spectral analysis, color flow Doppler imaging and compression. COMPARISON: No relevant prior studies available. FINDINGS: Deep veins: No DVT in the visualized left lower extremity veins. The external iliac vein is not well seen. Superficial veins: Not well seen. Soft tissues: Subcutaneous edema. Query abnormal lymph node or mass in the left groin measuring 2.8 x 2.9 x 2.7 cm. IMPRESSION: 1. No evidence of DVT in the visualized lower extremity veins. 2. Query abnormal lymph node or mass in the left groin.
[2019-06-02 03:19] LABS: ALT 27 U/L (21-72); AST 40 U/L (17-59); African American GFR (CKD) >90 (>60 ml/min/1.73 sqM); Albumin 3.9 g/dL (3.5-5.0); Alkaline Phosphatase 87 U/L (38-126); Anion Gap 11 mmol/L; Blood Urea Nitrogen 13 mg/dL (9-20); Calcium 9.3 mg/dL (8.4-10.2); Carbon Dioxide 22 mmol/L (22-30); Chloride 108 mmol/L (98-107); Glucose 104 mg/dL (74-99); Sodium 141 mmol/L (137-145); Total Bilirubin 0.6 mg/dL (0.2-1.3); Total Protein 6.8 g/dL (6.3-8.2)
[2019-06-02 03:31] LABS: Potassium 4.1 mmol/L (3.5-5.1)
--- NOTE | 2019-06-02 03:36 | XR ---
EXAM: XR Left Tibia and Fibula, 2 Views CLINICAL HISTORY: ITS.REASON XR Reason: Pain TECHNIQUE: Frontal and lateral views of the left tibia and fibula. COMPARISON: No relevant prior studies available. FINDINGS: Bones/joints: No acute fracture. Soft tissues: Soft tissue swelling. IMPRESSION: No acute fracture.
[2019-06-02] MEDS ORDERED: KETOROLAC 30 MG/ML 1 ML VIAL IVP STA (03:52)
--- NOTE | 2019-06-02 03:54 | ED ---
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 Patient reports that approximately one week since surgery he has had persistent left lower extremity swelling and pain. Patient also reports a mild amount of clear discharge from the incision site. Patient has a systemic complaints. Patient is currently receiving IV antibiotics through PICC line on daily basis. Patient pain medication to ED for evaluation of swelling which has been persistent. Denies other complaints. Systemic: Pt denies fatigue, fever/chills, rash. Pt denies weakness, night sweats, weight loss. Neuro: Pt denies headache, visual disturbances, syncope or pre-syncope. HEENT: Pt denies ocular discharge or irritation, otalgia, rhinorrhea, pharyngitis or notable lymphadenopathy. Cardiopulmonary: Pt denies chest pain, SOB, heart palpitations, dyspnea on exertion. Abdominal/GI: Pt denies abdominal pain, n/v/d. : Pt denies dysuria, burning w/ urination, frequency/urgency. Denies new onset urinary or bowel incontinence. MSK: Pt denies myalgia, loss of strength or function in extremities. Neuro: Pt denies new onset weakness, paresthesias. - Related Data Home Medications Medication Instructions Recorded Confirmed Lisinopril 20 mg PO PC-LUNCH 05/15/19 05/22/19 Previous Rx's Medication Instructions Recorded cefTRIAXone [Rocephin] 2,000 mg IVPB Q24HR #14 vial 05/25/19 Apixaban [Eliquis] 5 mg PO BID #60 tab 05/26/19 traMADol HCl [Ultram] 50 mg PO TID PRN #12 tab 05/28/19 Allergies Allergy/AdvReac Type Severity Reaction Status Date / Time codeine AdvReac Hallucinati Verified 06/01/19 23:17 ons Review of Systems ROS Statement: Those systems with pertinent positive or pertinent negative responses have been documented in the HPI. ROS Other: All systems not noted in ROS Statement are negative. Past Medical History Past Medical History: Diabetes Mellitus, Hypertension Additional Past Medical History / Comment(s): recently diagnosed with type 2 diabetes last month. Nerve damage from left rotater cuff. Mumps/measles at a [place]. Psoriasis. History of Any Multi-Drug Resistant Organisms: None Reported Past Surgical History: Orthopedic Surgery Additional Past Surgical History / Comment(s): second toe on left foot amputated 05/13/2019, BYPASS Past Psychological History: No Psychological Hx Reported Smoking Status: Former smoker Past Alcohol Use History: Occasional Past Drug Use History: Marijuana General Exam - General Exam Comments Initial Comments: Constitutional: NAD, AOX3, Pt has pleasant affect. HEENT: NC/AT, trachea midline, neck supple, no lymphadenopathy. Posterior pharynx non erythematous, without exudates. External ears appear normal, without discharge. Mucous membranes moist. Eyes PERRLA, EOM intact. There is no scleral icterus. No pallor noted. Cardiopulmonary: RRR, no murmurs, rubs or gallops, no JVD noted. Lungs CTAB in anterior and posterior valera. No peripheral edema. Abdominal exam: Abdomen soft and non-distended. Abdomen non-tender to palpation in all 4 quadrants. Bowel sounds active in LLQ. No hepatosplenomegaly. No ecchymosis Neuro: CN II-XII grossly intact. No nuchal rigidity. No raccon eyes, no mayo sign, no hemotympanum. No cervical spinal tenderness. MSK: Left lower extremity mildly erythematous, no drainage or localized rebound is noted on the incision site. Distal pulses intact and equal. Pattern refill less than 2 seconds. No posterior calf tenderness bilaterally, homans sign negative bilaterally. Posterior tibialis and radial pulse +2 bilaterally. Sensation intact in upper and lower extremities. Full active ROM in upper and lower extremities, 5/5 stregnth. Limitations: no limitations Course Vital Signs 06/01/19 23:13 Temperature 98.2 F Pulse Rate 69 Respiratory 18 Rate Blood Pressure 156/77 O2 Sat by Pulse 99 Oximetry Medical Decision Making - Medical Decision Making 63-year-old male patient presents to ED for evaluation of left lower extremity. Patient is status post arterial bypass, currently taking IV antibiotics and database the PICC line. Patient primary complaint is left lower extremity swelling. On exam patient left lower extremity is red and swollen. No erythema discharge or incision site. Laboratory investigations are non-impressive. Lactic acid 0.9. No leukocytosis. Plain film negative. No evidence of DVT in the visualized lower extremity veins, abnormal left of noted left groin region. Patient will follow-up with this an outpatient basis. Case discussed and pt seen by Dr. Hogue. - Lab Data Result diagrams: 06/02/19 02:30 06/02/19 02:30 Lab Results 06/02/19 06/02/19 06/02/19 Range/Units 02:30 02:30 02:30 WBC 8.6 (3.8-10.6) k/uL RBC 4.79 (4.30-5.90) m/uL Hgb 14.7 (13.0-17.5) gm/dL Hct 44.0 (39.0-53.0) % MCV 92.0 (80.0-100.0) fL MCH 30.7 (25.0-35.0) pg MCHC 33.4 (31.0-37.0) g/dL RDW 15.1 (11.5-15.5) % Plt Count 281 (150-450) k/uL Sodium 141 (137-145) mmol/L Potassium 4.1 (3.5-5.1) mmol/L Chloride 108 H (98-107) mmol/L Carbon Dioxide 22 (22-30) mmol/L Anion Gap 11 mmol/L BUN 13 (9-20) mg/dL Creatinine 0.84 (0.66-1.25) mg/dL Est GFR (CKD-EPI)AfAm >90 (>60 ml/min/1.73 sqM) Est GFR (CKD-EPI)NonAf >90 (>60 ml/min/1.73 sqM) Glucose 104 H (74-99) mg/dL Plasma Lactic Acid Duane 0.9 (0.7-2.0) mmol/L Calcium 9.3 (8.4-10.2) mg/dL Total Bilirubin 0.6 (0.2-1.3) mg/dL AST 40 (17-59) U/L ALT 27 (21-72) U/L Alkaline Phosphatase 87 (38-126) U/L Total Protein 6.8 (6.3-8.2) g/dL Albumin 3.9 (3.5-5.0) g/dL Disposition Clinical Impression: Lower extremity pain, left Disposition: HOME SELF-CARE Condition: Stable Instructions (If sedation given, give patient instructions): Musculoskeletal Pain (ED) Additional Instructions: Patient to adhere to previously discussed treatment plan and will take medication(s) as directed. Patient to follow up with PCP in 1-2 days. Patient to return to ED if symptoms do not improve. Follow-up with primary care provider as well as viscous surgeon and infectious disease. Repeat ultrasound of lymph node in left groin region. Continue taking antibiotics. Return to ER condition worsens. Is patient prescribed a controlled substance at d/c from ED?: No Referrals: Nonstaff,Physician [Primary Care Provider] - 1-2 days
[2019-06-02 04:14] VITALS: BP 167/87; PULSE 70; TEMP 98.6
== END 2019-06-02 04:14 | disposition home or self-care (01) ==
LOC: EC 22:56
DX: M79.605 Pain in left leg (principal); M79.89 Other specified soft tissue disorders; L53.9 Erythematous condition, unspecified; I10 Essential (primary) hypertension; E11.9 Type 2 diabetes mellitus without complications; Z87.891 Personal history of nicotine dependence; Z88.5 Allergy status to narcotic agent; Z79.899 Other long term (current) drug therapy; Z89.422 Acquired absence of other left toe(s); Z95.820 Peripheral vascular angioplasty status with implants and grafts
CPT/HCPCS: 36415; 80053; 83605; 85027; 96361; 96374; 96375; 99284

== ENCOUNTER 2022-02-02 15:44 | Emergency (ER) | payer MEDICARE, OTHER ==
--- NOTE | 2022-02-02 16:04 | ED ---
General Adult HPI - General Stated complaint: Unresponsive Time Seen by Provider: 02/02/22 15:53 - History of Present Illness Initial comments: Dictation was produced using [employer] dictation software. please excuse any grammatical, word or spelling errors. Chief Complaint: 66-year-old male brought in by EMS for cardiac arrest History of Present Illness: Is a 66-year-old male is past medical history of diabetes mellitus and hypertension. Patient was brought in by EMS. At approximately 308 family heard a loud thud in the house. They went to check on the patient. EMS was called right away. According to EMS family attempted CPR. EMS arrived on scene noticed that he was in ventricular fibrillation. He was ready cyanotic upon initial arrival. He was given multiple defibrillations with no return of spontaneous circulation. EMS reports that during 90% of the CPR for about instructed them patient was in intractable ventricular fibrillation. He was given multiple doses of epinephrine and amiodarone. EMS was concerned of head injury as he had some bleeding from the nose. Unable to obtain ROS secondary to mental status PHYSICAL EXAM: General Impression: Obtunded, cyanotic HEENT: Epistaxis to the right naris, no gross deformities to the skull Cardiovascular: Pulseless Chest: Bilateral breath sounds with bag valve ventilation Abdomen: abdomen soft, no organomegaly Musculoskeletal: Pulseless, pale extremities Neurological: Blunt pupils bilaterally, no movement Skin: Cyanotic ED course: 66-year-old male presents emergency department for cardiac arrest. Patient underwent multiple rounds of code pulmonary resuscitation. According to EMS patient remained pulseless. By the time patient arrived to us he had been pulseless for approximately 40 minutes. CPR was continued for another few rounds with no return of spontaneous circulation. Patient is received in trauma bay #2. Patient placed on monitor showing pulseless electrical activity with a rate in the 20s. Gross bedside echocardiogram showed cardiac standstill. Given duration of CPR with no return of spontaneous circulation, resuscitated attempts were ceased. Time of was announced at 1550. More history was obtained from girlfriend at approximately 4:15 PM. She states that she was with him today. Just prior to arrival he was looking for his work fast. He just got a job at [employer] 3 weeks ago. While looking for his vas he collapsed to the floor. Girlfriend states that he did not complain of anything today. She also reports that patient does not follow-up regularly with physician. Patient allegedly partakes marijuana occasionally. Drinks occasionally does not do any illicit drugs. - Related Data Home Medications Medication Instructions Recorded Confirmed lisinopriL 20 mg PO PC-LUNCH 05/15/19 05/22/19 Previous Rx's Medication Instructions Recorded cefTRIAXone [Rocephin] 2,000 mg IVPB Q24HR #14 vial 05/25/19 Apixaban [Eliquis] 5 mg PO BID #60 tab 05/26/19 traMADol HCl [Ultram] 50 mg PO TID PRN #12 tab 05/28/19 Allergies Allergy/AdvReac Type Severity Reaction Status Date / Time codeine AdvReac Hallucinati Verified 06/01/19 23:17 ons Review of Systems ROS Statement: Those systems with pertinent positive or pertinent negative responses have been documented in the HPI. ROS Other: All systems not noted in ROS Statement are negative. Past Medical History Past Medical History: Diabetes Mellitus, Hypertension Additional Past Medical History / Comment(s): recently diagnosed with type 2 diabetes last month. Nerve damage from left rotater cuff. Mumps/measles at a child. Psoriasis. History of Any Multi-Drug Resistant Organisms: None Reported Past Surgical History: Orthopedic Surgery Additional Past Surgical History / Comment(s): second toe on left foot amputated 05/13/2019, BYPASS Past Psychological History: No Psychological Hx Reported Past Alcohol Use History: Occasional Past Drug Use History: Marijuana Disposition Clinical Impression: Cardiac arrest Disposition: Referrals: None,Stated [Primary Care Provider] - 1-2 days Preliminary Cause of : cardiac arrest
== END 2022-02-02 18:00 | disposition expired ==
LOC: EC 15:44
DX: I46.9 Cardiac arrest, cause unspecified (principal); E11.9 Type 2 diabetes mellitus without complications; I10 Essential (primary) hypertension; F12.90 Cannabis use, unspecified, uncomplicated; Z79.01 Long term (current) use of anticoagulants; Z88.5 Allergy status to narcotic agent
CPT/HCPCS: 92950; 99285